=== PATIENT | female | born 1960 | race Caucasian/White ===

== ENCOUNTER 2018-12-18 09:41 | Outpatient (REF) | payer OTHER, SELFPAY ==
--- NOTE | 2018-12-18 08:20 | PAPFT_PTH ---
PATIENT: Chuy Randle LOC: [facility] U#:[id number] AGE/SX: 57/F ROOM: RE12/18/[address]: Etienne Perez : 1960 BED: DIS: 12/18/2018 SPEC #: [id number] RECD: 12/19/18 10:58 STATUS: JS REQ #: [id number] LUIS MANUEL: 12/18/18 08:[address]: Etienne Perez DEPT: [facility] Cytology RECD BY: Richelle Saldaña Tissues: 1 - CX/ENDOCX FOR PAP SMEARS Procedures: PAP THIN PREP/UVM Screening HPV DNA PROBE Comments: [id number]
== END 2018-12-18 10:01 ==
LOC: NCHCN 09:41
PROVIDERS: Visit Provider Family Medicine
DX: Z12.4 Encounter for screening for malignant neoplasm of cervix (principal); Z11.51 Encounter for screening for human papillomavirus (HPV)
CPT/HCPCS: 88142; 87624

== ENCOUNTER 2021-01-18 14:48 | Outpatient (REF) | payer OTHER, SELFPAY ==
[2021-01-18 14:51] LABS: Anion Gap 10.1 mmol/L (3-11); BUN 24 mg/dL (7-18); CO2 26.9 mmol/L (21.0-32.0); CREATININE 0.7 mg/dL (0.55-1.02); Calcium 9.1 mg/dL (8.5-10.1); Calculated LDL 148 mg/dL (<100); Chloride 105 mmol/L (98-107); Cholesterol 235 mg/dL (<200); Glucose 92 mg/dL (74-106); HDL Cholesterol 72 mg/dL (40-60); Potassium 4.3 mmol/L (3.5-5.1); Sodium 142 mmol/L (136-145); Triglyceride 79 mg/dL (<150)
== END 2021-01-18 14:49 | disposition home or self-care (01) ==
LOC: NCHCN 14:48
PROVIDERS: Visit Provider Family Medicine
DX: Z00.00 Encounter for general adult medical examination without abnormal findings (principal); Z13.220 Encounter for screening for lipoid disorders
CPT/HCPCS: 80048; 80061

== ENCOUNTER 2023-06-25 13:30 | Outpatient (REF) | payer BC, SELFPAY ==
[2023-06-25 16:20] LABS: Anion Gap 8.7 mmol/L (3-11); BUN 17 mg/dL (7-18); CO2 27.3 mmol/L (21.0-32.0); CREATININE 0.7 mg/dL (0.55-1.02); Calcium 8.7 mg/dL (8.5-10.1); Calculated LDL 134 mg/dL (<100); Chloride 106 mmol/L (98-107); Cholesterol 209 mg/dL (<200); Estimated GFR 98.34 (mL/min/1.73m2); Glucose 89 mg/dL (74-106); HDL Cholesterol 56 mg/dL (40-60); Potassium 3.6 mmol/L (3.5-5.1); Sodium 142 mmol/L (136-145); Triglyceride 95 mg/dL (<150)
== END 2023-06-25 13:31 | disposition home or self-care (01) ==
LOC: NCHCN 13:30
PROVIDERS: Visit Provider Family Medicine
DX: Z00.00 Encounter for general adult medical examination without abnormal findings (principal); Z13.220 Encounter for screening for lipoid disorders
CPT/HCPCS: 80048; 80061

== ENCOUNTER 2024-07-18 12:51 | Outpatient (REF) | payer BC, SELFPAY ==
--- NOTE | 2024-07-18 10:40 | PAPFT_PTH ---
PATIENT: Chuy Randle LOC: [facility]#:[id number] AGE/SX: 63/F ROOM: RE07/18/[address]: Etienne Perez : 1960 BED: DIS: 07/18/2024 SPEC #: [id number] RECD: 07/21/24 13:09 STATUS: JS REQ #: [id number] LUIS MANUEL: 07/18/24 10:[address]: Etienne Perez DEPT: [facility] Cytology RECD BY: Mulu Pendleton ENTERED: 07/21/24 13:09 SP TYPE: PAPFT OTHR DR: Unknown,Unknown Tissues: 1 - CX/ENDOCX FOR PAP SMEARS Procedures: PAP THIN PREP/UVM Screening HPV DNA PROBE Comments: [id number] (HPV 16 & 18/45)
--- OUTSIDE RECORDS SUMMARY | 2024-07-18 12:53 | XMS_ITS | Encounter Summary ---
Author Organization [facility] Address [address] [place] [address] Care Team Providers Care Demolition Engineer Name Role Phone Unknown, Provider Primary Care Provider Unava ilable Encounter Details Date Type Department Care Team (Late st Contact Info) Description 11/07/2017 Historical Results Only [facility] Radiology Results [address] [place] [address] Kimberley Jimenez MD [address] [facility], [facility] [address] [place] [address] Social History Tobacco Use Types Packs/Day Years Used Date Smoking Tobacco: Never Assessed Comments Unknown Sex and Gender Information Value Date Recorded Sex Assigned at Not on file Legal Sex Female 10:06 EDT Gender Identity Female 04/30/2020 10:09 EDT Sexual Orientation Not on file documented as of this encounter Plan of Treatment Upcoming Encounters Date Type Department Care Team (Late st Contact Info) Description 07/21/2024 18:10 EST Appointment [facility] Mammography [address] [place] [address] documented as of this encounter Procedures Procedure Name Priority Date/Time Associated Diagnosis Comments MA BREAST SCREENING TIMMY BILATERAL 11/07/2017 10:01 EDT documented in this encounter Results * MA BREAST SCREENING TIMMY BILATERAL (11/07/2017 10:01 EDT) Anatomical Region Laterality Modality Breast Bilateral Other 11/07/2017 10:0 1 EDT Narrative 11/07/2017 10:02 EDT ? EXAM: MAMMOGRAM/MAMMO BILATERAL SCREEN W ??EX. D/ (1905) ? CLINICAL INFORMATION: ? Z12.31 SCREENING ? COMPARISON: 2006, 2010, 2012, 2016 ? TECHNIQUE: ??Full field digital whole breast 2D (C-view) and 3D CC and ? MLO views of both breasts were obtained. CAD technology was utilized. ? FINDINGS: ??The fibroglandular patterns of the breasts are normal. ? There has been no change when compared to previous mammograms and ? there is no mammographic evidence of cancer. The breast tissue is of ? scattered density. ? FINAL ASSESSMENT: ??BILATERAL BREAST - Category 1 - Negative. Routine ? mammographic follow-up is recommended. ? These results will be communicated to your patient via a lay letter ? from Radiology. ??If any additional imaging is needed we will contact ? your patient directly. ? REPORT SIGNED IN OTHER VENDOR SYSTEM 11/07/2017 ?Reported By: Nehemias Berumen MD ? CC: ? Transcribed Date/Time: 11/07/2017 (1002) ? Hosiery Bagger: ? Printed Date/Time: 02/13/2019 (2799) ? PAGE 1 ? Signed Report ? Procedure Note Nehemias Berumen MD - 07/02/2019 EXAM: MAMMOGRAM/MAMMO BILATERAL SCREEN W EX. D/ (1905) CLINICAL INFORMATION: Z12.31 SCREENING COMPARISON: 2006, 2010, 2011, 2015 TECHNIQUE: Full field digital whole breast 2D (C-view) and 3D CCand MLO views of both breasts were obtained. CAD technology wasutilized. FINDINGS: The fibroglandular patterns of the breasts are normal. There has been no change when compared to previous mammograms and there is no mammographic evidence of cancer. The breast tissue isof scattered density. FINAL ASSESSMENT: BILATERAL BREAST - Category 1 - Negative.Routine mammographic follow-up is recommended. These results will be communicated to your patient via a lay letter from Radiology. If any additional imaging is needed we willcontact your patient directly. REPORT SIGNED IN OTHER VENDOR SYSTEM 11/07/2017 Reported By: Nehemias Berumen MD CC: Transcribed Date/Time: 11/07/2017 (1002) Hosiery Bagger: Printed Date/Time: 02/13/2019 (0299) PAGE 1 Signed Report Kimberley Jimenez MD IM MAMMOGRAPHY ORDERABLES Final Result documented in this encounter Visit Diagnoses Not on filedocumented in this encounter Care Teams Demolition Engineer Relationship Specialty Start Date End Date Unknown, Provider, PCP - General 06/05/16 04/29/20 documented as of this encounter
--- OUTSIDE RECORDS SUMMARY | 2024-07-18 12:53 | XMS_ITS | Encounter Summary ---
Author Organization [facility] Address [address] [place] [address] Care Team Providers Care President & Founder Name Role Phone Unknown, Provider Primary Care Provider Unava ilable Encounter Details Date Type Department Care Team (Late st Contact Info) Description 02/13/2019 Historical Results Only [facility] Radiology Results [address] [place], [place] [id number] Ade Higginbotham PA-C [address] [facility] [address] [place] [address] Social History Tobacco Use Types Packs/Day Years [...] Contact Info) Description 07/21/2024 18:10 EST Appointment [facility] Mammography [address] [place], [place] [address] documented as of this encounter Procedures Procedure Name Priority Date/Time Associated Diagnosis Comments XR KNEE LEFT 4 OR MORE VIEWS 02/13/2019 15:58 EDT documented in this encounter Results * XR KNEE LEFT 4 OR MORE VIEWS (02/13/2019 15:58 EDT) Anatomical Region Laterality Modality Lower Extremities Left Other 02/13/2019 15:5 8 EDT Narrative 02/13/2019 16:01 EDT ? EXAM: RADIOLOGY EXPRESS CARE/EXP CARE KNE EX. D/ (1525) ? CLINICAL INFORMATION: ? LATERAL PAIN ? INDICATION: LATERAL PAIN. ? COMPARISON: None. ? TECHNIQUE: 4+ views of the left knee were obtained. ? FINDINGS: ? Mild swelling of the prepatellar soft tissues is present. The ? tibiofemoral and patellofemoral joints are unremarkable. No knee ? joint effusion is seen. No fracture or osteonecrosis is identified. ? IMPRESSION: No acute abnormality. ? REPORT SIGNED IN OTHER VENDOR SYSTEM 02/13/2019 ?Reported By: Nehemias Berumen MD ? CC: ? Transcribed Date/Time: 02/13/2019 (1601) ? Inspector Tool: ? Printed Date/Time: 05/14/2019 (1918) ? PAGE 1 ? Signed Report ? Procedure Note Nehemias Berumen MD - 07/01/2019 EXAM: RADIOLOGY EXPRESS CARE/EXP CARE KNE EX. D/ (1525) CLINICAL INFORMATION: LATERAL PAIN INDICATION: LATERAL PAIN. COMPARISON: None. TECHNIQUE: 4+ views of the left knee were obtained. FINDINGS: Mild swelling of the prepatellar soft tissues is present. The tibiofemoral and patellofemoral joints are unremarkable. No knee joint effusion is seen. No fracture or osteonecrosis is identified. IMPRESSION: No acute abnormality. REPORT SIGNED IN OTHER VENDOR SYSTEM 02/13/2019 Reported By: Nehemias Berumen MD CC: Transcribed Date/Time: 02/13/2019 (1838) Inspector Tool: Printed Date/Time: 05/14/2019 (3589) PAGE 1 Signed Report us Ade Higginbotham PA-C [facility] DIAGNOSTIC IMAGING ORDERABLES Final Result documented in this encounter Visit Diagnoses Not on filedocumented in this encounter Care Teams President & Founder Relationship Specialty Start Date End Date Unknown, Provider, PCP - General 06/05/16 04/29/20 documented as of this encounter
--- OUTSIDE RECORDS SUMMARY | 2024-07-18 12:53 | XMS_ITS | Encounter Summary ---
Author Organization [facility] Address [address] [place] [address] Care Team Providers Care Cloth Shrinking Machine Operator Name Role Phone Unknown, Provider Primary Care Provider Unava ilable Encounter Details Date Type Department Care Team (Late st Contact Info) Description 12/18/2018 Results Only [facility] [phone] Brandon Perez MD [address] [place] [address] [address] [place], [place] [address] Social History Tobacco Use Types Packs/Day Years [...] Contact Info) Description 07/21/2024 18:10 EST Appointment [facility] [address] [place], [place] [address] documented as of this encounter Procedures Procedure Name Priority Date/Time Associated Diagnosis Comments PAP TEST- RESULT ONLY Routine 12/18/2018 0:00 EDT documented in this encounter Results * PAP TEST- RESULT ONLY (12/18/2018 0:00 EDT) Pathology Report: CYTOPATHOLOGY REPORT Reports generated via electronic interface contain original data; however they are lacking the format of the original report. Caution should be taken when reading/interpreti ng unformatted reports. Name: ? CHUY FOX ? Accession #: ? [id number] ? : ? 1960 (Age: 57) ??F ?Collect Date: ? 12/18/2018 ? Location: ? [facility] ? Receive Date: ? 12/20/2018 ? Provider: BRANDON PEREZ MD Copy to: ? Final Report SPECIMEN ADEQUACY ? Satisfactory for Evaluation - assessment of transformation zone component not applicable ( e.g. atrophy, vaginal sample, hysterectomy) GENERAL CATEGORIZATION ? Negative for Intraepithelial Lesion or Malignancy ?? Treatment History: Hysterectomy: S/p supracervical Other: Additional clinical information: Z12.4 Z00.00 Specimen/Source: ??Pap Test, Cervix, ThinPrep Imaging System with manual evaluation Document reviewed and electronically signed by: ? ALLYSSA Reyes(ASCP) ? Report ??Date: 12/24/2018 12:12 HPV with Pap Test ? Date Ordered: ? 12/24/2018 ? Status: ?? Signed Out ?Date Complete: ? 12/26/2018 ? By: ??System Interface ? Date Reported: ? 12/26/2018 ? Interpretation RESULT: Negative for HPV. No E6 or E7 mRNA is detected from HPV types 16,18,31,33,35, 39,45,51,52,56,58, 59,66, and 68 by geospatial technician mediated amplification. Comments Document reviewed and electronically signed by: ? System Interface ? Report date: 12/26/2018 By the signature above, the attending physician certifies that he/she has personally conducted a gross and/or microscopic examination of the described specimens and rendered or confirmed the above diagnosis. End of Report [facility] 12/18/2018 12/20/2018 Brandon Perez MD PATHOLOGY ORDERABLES Final Result [facility] [address] [place] [address] documented in this encounter Visit Diagnoses Not on filedocumented in this encounter Care Teams Cloth Shrinking Machine Operator Relationship Specialty Start Date End Date Unknown, Provider, PCP - General 06/05/16 04/29/20 documented as of this encounter
--- OUTSIDE RECORDS SUMMARY | 2024-07-18 12:53 | XMS_ITS | Encounter Summary ---
Author Organization [facility] Address [address] [place] [address] Care Team Providers Care Dealmaker Name Role Phone Unknown, Provider Primary Care Provider Unava ilable Encounter Details Date Type Department Care Team (Late st Contact Info) Description 09/13/2017 Historical Results Only [facility] - Main [place] [phone] Kimberley Jimenez MD [address] [facility], [facility] [address] [place] [address] Social History Tobacco Use Types [...] Contact Info) Description 07/21/2024 18:10 EST Appointment [facility] Mammography [address] [place] [address] documented as of this encounter Procedures Procedure Name Priority Date/Time Associated Diagnosis Comments LIPID PROFILE (INCLUDES CHOLESTEROL, TRIGLYCERIDES, HDL, LDL) Routine 09/13/2017 8:31 EST documented in this encounter Results * (ABNORMAL) LIPID PROFILE (INCLUDES CHOLESTEROL, TRIGLYCERIDES, HDL, LDL) (09/13/2017 8:31 EST) Triglyceride 120 <150 mg/dL 09/13/2017 10:11 EST [facility] Comment: Adult: Normal: ?<150 mg/dl ? Borderline High: 150-199 mg/dl ? High: ?200-499 mg/dl ? Very High: >ba=791 Cholesterol 240(H) <200 mg/dL 09/13/2017 10:11 [facility] Comment: Acceptable: ??<200 Borderline: ??200-239 High: ?> or = 240 Chol/HDL Ratio 3.2 0 - 4.5 09/13/2017 10:11 [facility] Comment: DESIRABLE RATIO IS LESS THAN 4.1 PATIENTS ARE CONSIDERED AT RISK: WOMEN RATIO >5 MEN RATIO >6 FASTING? - [facility] Yes 8 8:32 [facility] HDL 75(H) 40 - 60 mg/dL 09/13/2017 10:11 [facility] Comment: ?? Reference Range Low: ? < 40 ??mg/dL Normal: ??40-60 mg/dL High: ?>= 60 mg/dL LDL CHOLESTEROL - [facility] 141(H) 60 - 100 mg/dL 09/13/2017 10:11 [facility] Non HDL Cholesterol 165 mg/dl 09/13/2017 10:11 [facility] Comment: Desirable: ?Less than 130 Borderline High: ??130-159 High: ? 160-189 Very High: ?Greater than or equal to 190 09/13/2017 8:31 EST 09/13/2017 8:31 EST Narrative [facility] - 09/13/2017 10:11 EST Does PT Have a Latex Allergy? NO us Kimberley Jimenez MD CHEMISTRY & BLOOD GAS ORDERABLES Final Result [facility] documented in this encounter Visit Diagnoses Not on filedocumented in this encounter Care Teams Dealmaker Relationship Specialty Start Date End Date Unknown, Provider, PCP - General 06/05/16 04/29/20 documented as of this encounter
--- OUTSIDE RECORDS SUMMARY | 2024-07-18 12:53 | XMS_ITS | Encounter Summary ---
Author Organization [facility] Address [address] [place] [address] Care Team Providers Care Mushroom Press Operator Name Role Phone Unknown, Provider MD Primary Care Provider Unava ilable Encounter Details Date Type Department Care Team (Latest Contact Info) Description 05/23/2017 23:13 EDT - 05/23/2017 23:59 EDT Hospital Encounter [facility] [address] [place] [address] Unknown, ProviderMD Discharge Disposition: Home or Self Care Social History Tobacco Use Types Packs/Day Years Used Date Smoking Tobacco: Never Assessed Comments Unknown Sex and Gender Information Value Date Recorded Sex Assigned at Not on file Legal Sex Female 10:06 EDT Gender Identity Female 04/30/2020 10:09 EDT Sexual Orientation Not on file documented as of this encounter Discharge Disposition Disposition Code Departure Means Destination Home or Self [place] documented in this encounter Plan of Treatment Upcoming Encounters Date Type Department Care Team (Late st Contact Info) Description 07/21/2024 18:10 EST Appointment [facility] Mammography [address] [place] [address] documented as of this encounter Visit Diagnoses Not on filedocumented in this encounter Care Teams Mushroom Press Operator Relationship Specialty Start Date End Date Unknown, Provider, PCP - General 06/05/16 04/29/20 documented as of this encounter
--- OUTSIDE RECORDS SUMMARY | 2024-07-18 12:53 | XMS_ITS | Encounter Summary ---
Author Organization [facility] Address [address] [place] [address] Care Team Providers Care Hand Rounder Name Role Phone Genny Shipman [facility]- Primary Care Provider [phone] Reason for Visit * Reason Comments Wrist Injury right Encounter Details Date Type Department Care Team (Late st Contact Info) Description 04/27/2024 11:30 EDT [facility] [address] [place] [phone] Dilma Pittman NP [address] [facility] [address] [place] [address] Injury of right wrist, initial encounter (Primary Dx) Social History Tobacco Use Types Packs/Day Years Used Date Smoking Tobacco: Never Assessed Interpersonal Safety Answer Date Record ed Physically Hurt Never 03/29/2020 Verbally Threaten Not on file 03/29/2020 Comments Unknown Sex and Gender Information Value Date Recorded Sex Assigned at Not on file Legal Sex Female 10:06 EDT Gender Identity Female 04/30/2020 10:09 EDT Sexual Orientation Not on file documented as of this encounter Last Filed Vital Signs Vital Sign Reading Time Taken Comments Blood Pressure 127/57 04/27/2024 1129 EDT Pulse 68 04/27/2024 1129 EDT Temperature 36.4 ??C (97.5 ??F) 04/27/2024 1129 EDT Respiratory Rate 16 04/27/2024 1129 EDT Oxygen Saturation 97% 04/27/2024 1129 EDT Inhaled Oxygen Concentration - - Weight - - Height - - Body Mass Index - - documented in this encounter Progress Notes * Kate Serna, RN - 04/27/2024 1130 EDT CC/HPI: Pt here with right wrist injury. Occurred this morning. Pt used ice and swelling continued.Now, hand is swollen. Pt was pulling on a starter cord to a 4-farrar and the cord snapped. 7/10 pain with use. Covid Screening: In the last 72 hours, has the patient had: New or unusual cough, shortness of breath, new nasal congestion, sore throat, fever, chills, body aches, or new loss of taste or smell without a reasonable alternative diagnosis? N In the past 10 days, has the patient had a positive Covid test OR a confirmed close Covid exposure?N * Dilma Pittman NP - 04/27/2024 1130 EDT [facility] Chief Complaint(s): Wrist Injury (right) Assessment & Plan: 1. Injury of right wrist, initial encounter 63 yo female with dorsal right wrist pain since injury pulling on a cord this morning. There is swelling and tenderness just proximal to the radiocarpal joint. No fracture seen on x-ray. Recommended supportive care with RICE. RHIANNA wrap applied. Start range of motion as tolerated this week. Recheck with lack of improvement over the next 7-10 days - XR WRIST RIGHT 3 OR MORE VIEWS An appropriate medical screening examination was performed. The patient was assessed prior to discharge and deemed stable for discharge home. HPI: Chuy is here with right wrist injury. Occurred this morning. She was pulling on a starter cord on 4-farrar and cord snapped and her arm and wrist jerked. It all happened very quickly and she is notexactly sure what happened. She did not fall on it The pain as at the dorsum of her wrist. Some pain at rest. Worse with movement, particularly supination. There is swelling. She has applied some ice. She is right handed. 7/10 of pain with use. No history of osteoporosis or significant injuries to this wrist. Objective: Vitals and nursing notes reviewed Examination: BP 127/57 (BP Cuff Location: Left arm) Pulse 68 Temp 36.4 ??C (97.5 ??F) (Oral) Resp 16 SpO2 97% Physical Exam Constitutional: Appearance: Normal appearance. She is not ill-appearing. Musculoskeletal: Right elbow: Normal. Right wrist: Swelling and tenderness present. No lacerations or snuff box tenderness. Decreased range of motion (able to move wrist in all directions but limited with pain). Right hand: No swelling or tenderness. Decreased range of motion (increases pain in wrist). Normal sensation. Normal capillary refill. Comments: Swelling and tenderness at right dorsal wrist, proximal to the radiocarpal joint Neurological: Mental Status: She is alert. Data reviewed with patient (current and past results): XR WRIST RIGHT 3 OR MORE VIEWS Narrative: PROCEDURE INFORMATION: Exam: XR Right Wrist Exam date and time: 04/27/2024 11:55 AM Age: 63 years old Clinical indication: Unspecified injury of right wrist, hand and finger(s), initial encounter; Pain; Additional info: Dorsal wrist pain and swelling, injury TECHNIQUE: Imaging protocol: Radiologic exam of the right wrist. Views: 3 or more views. COMPARISON: No relevant prior studies available. FINDINGS: Bones/joints: Normal. Soft tissues: Normal. Impression: No acute findings. THIS DOCUMENT HAS BEEN ELECTRONICALLY SIGNED BY CHING NAVARRETE MD FOR ANY QUESTIONS OR CONCERNS REGARDING THIS REPORT PLEASE CALL [facility] AT [phone] This note may be in part documented using voice dictation software. Please forgive any errors or omissions that may result from use of dictation. documented in this encounter Plan of Treatment Upcoming Encounters Date Type Department Care Team (Late st Contact Info) Description 07/21/2024 18:10 EST Appointment [facility] Mammography [address] [place] [id number] documented as of this encounter Procedures Procedure Name Priority Date/Time Associated Diagnosis Comments XR WRIST RIGHT 3 OR MORE VIEWS STAT 04/27/2024 12:03 EDT Injury of right wrist, initial encounter documented in this encounter Results * XR WRIST RIGHT 3 OR MORE VIEWS (04/27/2024 12:03 EDT) Anatomical Region Laterality Modality Upper Extremities Right Computed Radio graphy 04/27/2024 11:5 5 EDT Impressions 04/27/2024 14:14 EDT No acute findings. THIS DOCUMENT HAS BEEN ELECTRONICALLY SIGNED BY CHING NAVARRETE MD FOR ANY QUESTIONS OR CONCERNS REGARDING THIS REPORT PLEASE CALL [facility] AT [phone] Narrative 04/27/2024 14:14 EDT PROCEDURE INFORMATION: Exam: XR Right Wrist Exam date and time: 04/27/2024 11:55 AM Age: 63 years old Clinical indication: Unspecified injury of right wrist, hand and finger(s), initial encounter; Pain; Additional info: Dorsal wrist pain and swelling, injury TECHNIQUE: Imaging protocol: Radiologic exam of the right wrist. Views: 3 or more views. COMPARISON: No relevant prior studies available. FINDINGS: Bones/joints: Normal. Soft tissues: Normal. Procedure Note Ching Navarrete MD - 04/27/2024 PROCEDURE INFORMATION: Exam: XR Right Wrist Exam date and time: 04/27/2024 11:55 AM Age: 63 years old Clinical indication: Unspecified injury of right wrist, hand and finger(s), initial encounter; Pain; Additional info: Dorsal wrist pain and swelling, injury TECHNIQUE: Imaging protocol: Radiologic exam of the right wrist. Views: 3 or more views. COMPARISON: No relevant prior studies available. FINDINGS: Bones/joints: Normal. Soft tissues: Normal. IMPRESSION No acute findings. THIS DOCUMENT HAS BEEN ELECTRONICALLY SIGNED BY CHING NAVARRETE MD FOR ANY QUESTIONS OR CONCERNS REGARDING THIS REPORT PLEASE CALL [facility] [phone] Dilma Pittman NP IMG DIAGNOSTIC IMAGING ORDERABL ES Final Result documented in this encounter Visit Diagnoses Diagnosis Injury of right wrist, initial encounter- Primary documented in this encounter Care Teams Hand Rounder Relationship Specialty Start Date End Date [facility] [address] [facility] [place] [address] PCP - General 04/30/20 07/14/24 documented as of this encounter
--- OUTSIDE RECORDS SUMMARY | 2024-07-18 12:53 | XMS_ITS | Clinical Summary ---
Author Organization [facility] Address [address] [place] [address] Care Team Providers Care Last Sawyer Name Role Phone Dani Perez MD Primary Care Provide r Allergies Active Allergy Reactions Criticality Noted Date Comments Clarithromycin 02/13/2019 Other reaction(s): hives Penicillin 02/13/2019 Other reaction(s): hives Sulfa (Sulfonamide Antibiotics) 02/13/2019 Other reaction(s): hives Medications loratadine-pseud oephedrine (CLARITIN-D 12-HOUR) 5-120 mg per tablet 1 tab(s) orally every 12 hours, as needed Active meloxicam (MOBIC) 7.5 mg tablet Take 1 Tablet by mouth daily. Active Encounters Date Type Department Care Team Description 04/27/2024 11:30 EDT Walk-In [facility] [address] [place] [address] Dilma Pittman NP Injury of right wrist, initial encounter (Primary Dx) from Last 3 Months Social History Tobacco Use Types Packs/Day Years Used Date Smoking Tobacco: Never Assessed Interpersonal Safety Answer Date Record ed Physically Hurt Never 03/29/2020 Verbally Threaten Not on file 03/29/2020 Comments Unknown Sex and Gender Information Value Date Recorded Sex Assigned at Not on file Legal Sex Female 10:06 EDT Gender Identity Female 04/30/2020 10:09 EDT Sexual Orientation Not on file Last Filed Vital Signs Vital Sign Reading Time Taken Comments Blood Pressure 127/57 04/27/2024 1129 EDT Pulse 68 04/27/2024 1129 EDT Temperature 36.4 ??C (97.5 ??F) 04/27/2024 1129 EDT Respiratory Rate 16 04/27/2024 1129 EDT Oxygen Saturation 97% 04/27/2024 1129 EDT Inhaled Oxygen Concentration - - Weight - - Height - - Body Mass Index - - Plan of Treatment Upcoming Encounters Date Type Department Care Team (Late st Contact Info) Description 07/21/2024 18:10 EST Appointment [facility] Mammography [address] [place] [id number] Health Maintenance Due Date Last Done Comments Hepatitis C Screen 1960 COVID-19 Vaccine ( season) 2024 RSV Immunization ( o r 60+ Years) (1 - 1-dose 75+ series) 2036 Procedures Procedure Name Priority Date/Time Associated Diagnosis Comments XR WRIST RIGHT 3 OR MORE VIEWS STAT 04/27/2024 12:03 EDT Injury of right wrist, initial encounter from Last 3 Months Results * XR WRIST RIGHT 3 OR MORE VIEWS (04/27/2024 12:03 EDT) Anatomical Region Laterality Modality Upper Extremities Right Computed Radio graphy 04/27/2024 11:5 5 EDT Impressions 04/27/2024 14:14 EDT No acute findings. THIS DOCUMENT HAS BEEN ELECTRONICALLY SIGNED BY CHING NAVARRETE MD FOR ANY QUESTIONS OR CONCERNS REGARDING THIS REPORT PLEASE CALL [facility] AT [phone] Narrative 04/27/2024 14:14 EDT PROCEDURE INFORMATION: Exam: [...] CONCERNS REGARDING THIS REPORT PLEASE CALL [facility] [phone] us Dilma Pittman NP IMG DIAGNOSTIC IMAGING ORDERABL ES Final Result from Last 3 Months Insurance [facility] Care Teams Last Sawyer Relationship Specialty Start Date End Date Dani Perez MD [address] [place] [address] [address] [place] [address] PCP - General 07/15/24
--- OUTSIDE RECORDS SUMMARY | 2024-07-18 12:53 | XMS_ITS | Encounter Summary ---
Author Organization [facility] Address [address] [place] [address] Care Team Providers Care Public Improvement Inspector Name Role Phone Unknown, Provider Primary Care Provider Unava ilable Encounter Details Date Type Department Care Team (Late st Contact Info) Description 05/24/2017 Historical Results Only [facility] Radiology Results [address] [place] [address] Geovany Stroud MD [address] [place] [address] Social History Tobacco Use Types Packs/Day Years [...] Contact Info) Description 07/21/2024 18:10 EST Appointment [facility] Mammography [address] [place] [address] documented as of this encounter Procedures Procedure Name Priority Date/Time Associated Diagnosis Comments XR CHEST 2 VIEWS 05/24/2017 17:0 8 EDT documented in this encounter Results * XR CHEST 2 VIEWS (05/24/2017 17:08 EDT) Anatomical Region Laterality Modality Other 05/24/2017 17:0 8 EDT Narrative 05/24/2017 17:12 EDT ? EXAM: RADIOLOGY/CHEST (PA ?? LAT) ?EX. D/ (1659) ? CLINICAL INFORMATION: ? RE CHECK PTX ? INDICATION: RE CHECK PTX RECHECK ? TECHNIQUE: ??Chest, PA and lateral views ? COMPARISON: CT chest 05/23/2017. ? FINDINGS: There is a persistent right apical pneumothorax. Accounting ? for differences in positioning in the 2 examinations, the size is ? similar. No left-sided pneumothorax is present. The lungs remain ? clear. The cardiac silhouette and pulmonary vascularity are normal. ? IMPRESSION: ? Persistent right pneumothorax. ? REPORT SIGNED IN OTHER VENDOR SYSTEM 05/24/2017 ?Reported By: Laz Rodgers MD ? CC: ? Transcribed Date/Time: 05/24/2017 (1712) ? Loan Clerk: ? Printed Date/Time: 02/11/2019 (1412) ? PAGE 1 ? Signed Report ? Procedure Note Laz Rodgers E - 07/02/2019 EXAM: RADIOLOGY/CHEST (PA LAT) EX. D/ (6159) CLINICAL INFORMATION: RE CHECK PTX INDICATION: RE CHECK PTX RECHECK TECHNIQUE: Chest, PA and lateral views COMPARISON: CT chest 05/23/2017. FINDINGS: There is a persistent right apical pneumothorax.Accounting for differences in positioning in the 2 examinations, the size is similar. No left-sided pneumothorax is present. The lungs remain clear. The cardiac silhouette and pulmonary vascularity are normal. IMPRESSION: Persistent right pneumothorax. REPORT SIGNED IN OTHER VENDOR SYSTEM 05/24/2017 Reported By: Laz Rodgers MD CC: Transcribed Date/Time: 05/24/2017 (3256) Loan Clerk: Printed Date/Time: 02/11/2019 (7465) PAGE 1 Signed Report us Geovany Stroud MD IMG DIAGNOSTIC IMAGING O RDERABLES Final Result documented in this encounter Visit Diagnoses Not on filedocumented in this encounter Care Teams Public Improvement Inspector Relationship Specialty Start Date End Date Unknown, Provider, PCP - General 06/05/16 04/29/20 documented as of this encounter
--- OUTSIDE RECORDS SUMMARY | 2024-07-18 12:53 | XMS_ITS | Encounter Summary ---
Author Organization [facility] Address [address] [place] [address] Care Team Providers Care Crown Wheel Assembler Name Role Phone Unknown, Provider MD Primary Care Provider Unava ilable Encounter Details Date Type Department Care Team (Latest Contact Info) Description 11/05/2017 10:25 EDT - 11/05/2017 23:59 EDT Hospital Encounter [facility] [address] [place] [address] Unknown, ProviderMD Discharge Disposition: Home or Self [...] Code Departure Means Destination Home or Self Nursing Home documented in this encounter Plan of Treatment Upcoming Encounters Date Type Department Care Team (Late st Contact Info) Description 07/21/2024 18:10 EST Appointment [facility] Mammography [address] [place] [address] documented as of this encounter Visit Diagnoses Not on filedocumented in this encounter Care Teams Crown Wheel Assembler Relationship Specialty Start Date End Date Unknown, Provider, PCP - General 06/05/16 04/29/20 documented as of this encounter
--- OUTSIDE RECORDS SUMMARY | 2024-07-18 12:53 | XMS_ITS | Referral Summary ---
Author Organization [facility] Address [address] [place] [address] Care Team Providers Care Credit Representative Name Role Phone Dani Perez MD Primary Care Provide r Encounters Date Type Department Care Team Description 04/27/2024 11:30 EDT [facility] [address] [place] [address] Dilma Pittman NP Injury of right wrist, initial encounter (Primary Dx) from Last 3 Months Allergies Active Allergy Reactions Criticality Noted Date Comments Clarithromycin 02/13/2019 Other reaction(s): hives Penicillin 02/13/2019 Other reaction(s): hives Sulfa (Sulfonamide Antibiotics) 02/13/2019 Other reaction(s): hives Medications loratadine-pseud oephedrine (CLARITIN-D 12-HOUR) 5-120 mg per tablet 1 tab(s) orally every 12 hours, as needed Active meloxicam (MOBIC) 7.5 mg tablet Take 1 Tablet by mouth daily. Active Social History Tobacco Use Types Packs/Day Years [...] Contact Info) Description 07/21/2024 18:10 EST Appointment [address] [address] Procedures Procedure Name Priority Date/Time Associated Diagnosis [...] REGARDING THIS REPORT PLEASE CALL [facility] AT [phone] Narrative 04/27/2024 14:14 EDT PROCEDURE INFORMATION: Exam: [...] CONCERNS REGARDING THIS REPORT PLEASE CALL [facility] [phone] us Dilma Zain SULLIVAN IMG DIAGNOSTIC IMAGING ORDERABL ES Final Result from Last 3 Months Insurance [facility] Care Teams Credit Representative Relationship Specialty Start Date End Date Dani Perez MD [address] [place] [address] [address] [place] [address] PCP - General 07/15/24
--- OUTSIDE RECORDS SUMMARY | 2024-07-18 12:53 | XMS_ITS | Encounter Summary ---
Author Organization [facility] Address [address] [place] [address] Care Team Providers Care Oxygen Therapy Technician Name Role Phone Unknown, Provider Primary Care Provider Unava ilable Encounter Details Date Type Department Care Team (Late st Contact Info) Description 11/05/[address] [facility] Radiology Results [address] [place] [address] Kimberley Jimenez MD [address] [facility], [facility] [address] [place] [address] Social History Tobacco Use Types [...] Contact Info) Description 07/21/2024 18:[address] [facility] Mammography [address] [place] [address] documented as of this encounter Visit Diagnoses Not on filedocumented in this encounter Care Teams Oxygen Therapy Technician Relationship Specialty Start Date End Date Unknown, Provider, PCP - General 06/05/16 04/29/20 documented as of this encounter
--- OUTSIDE RECORDS SUMMARY | 2024-07-18 12:53 | XMS_ITS | Encounter Summary ---
Author Organization [facility] Address [address] [place] [address] Care Team Providers Care Commercial Collections Driver Name Role Phone Unknown, Provider Primary Care Provider Unava ilable Encounter Details Date Type Department Care Team (Late st Contact Info) Description 05/27/[address] [facility] Radiology Results [address] [place] [address] Kimberley Jimenez MD [address] [facility], [facility] [address] [place] [address] Social History Tobacco Use Types [...] Info) Description 07/21/2024 18:[address] [facility] Mammography [address] [place] [address] documented as of this encounter Procedures Procedure Name Priority Date/Time Associated Diagnosis Comments XR CHEST 2 VIEWS 05/27/2017 17:0 8 EDT documented in this encounter Results * XR CHEST 2 VIEWS (05/27/2017 17:08 EDT) Anatomical Region Laterality Modality Other 05/27/2017 17:0 8 EDT Narrative 05/27/2017 17:09 EDT ? EXAM: RADIOLOGY/CHEST (PA ?? LAT) ?EX. D/ (1633) ? CLINICAL INFORMATION: ? S27.0XXD, TRAUMATIC PNEUMOTHROX, SUBSEQUENT ? ENCOUNTER, EVAL FOR CHANGE OF PNEUMONOTHORAX ? EXAM: ? XR Chest, 2 Views ? EXAM DATE/TIME: ? 05/27/2017 4:22 PM ? CLINICAL HISTORY: ? The patient is 56 years old and is female; Signs and symptoms; ? Other: Pneumo recheck; Additional info: S27.0xxd, traumatic ? pneumothrox, subsequent , encounter, eval for change of ? pneumonothorax Facility exam id and description: Cxr chest (pa ? lat) ? TECHNIQUE: ? Frontal and lateral views of the chest. ? COMPARISON: ? CR - ([id number], CHEST, CHEST PA) 05/24/2017 4:45:33 PM ? FINDINGS: ? Lungs: ??There is mild streaky bibasilar atelectasis. ??The ? lungs are otherwise clear. ? Pleural space: ??A right-sided pneumothorax is again present. ? It is slightly decreased in size, now with approximately 1.4 cm ? pleural separation (previously 1.9 cm). ??No left pneumothorax. ? The costophrenic angles are sharp. ? Heart: ??The cardiomediastinal silhouette is fairly stable in ? appearance. ? Mediastinum: ??See above. ? Bones/joints: ??Degenerative changes again involve the spine ? and shoulders. ? IMPRESSION: ? Slightly decreased size of a right-sided pneumothorax as ? compared with 9/28/17. ? REPORT SIGNED IN OTHER VENDOR SYSTEM 05/27/2017 ?Reported By: Manjeet Arias MD ? CC: ? Transcribed Date/Time: 05/27/2017 (1709) ? Car Shagger: HIS.[facility] ? Printed Date/Time: 02/11/2019 (1412) ? PAGE 1 ? Signed Report ? Procedure Note Manjeet Arias MD - 07/02/2019 EXAM: RADIOLOGY/CHEST (PA LAT) EX. D/ (1633) CLINICAL INFORMATION: S27.0XXD, TRAUMATIC PNEUMOTHROX, SUBSEQUENT ENCOUNTER, EVAL FOR CHANGE OF PNEUMONOTHORAX EXAM: XR Chest, 2 Views EXAM DATE/TIME: 05/27/2017 4:22 PM CLINICAL HISTORY: The patient is 56 years old and is female; Signs and symptoms; Other: Pneumo recheck; Additional info: S27.0xxd, traumatic pneumothrox, subsequent , encounter, eval for change of pneumonothorax Facility exam id and description: Cxr chest (pa lat) TECHNIQUE: Frontal and lateral views of the chest. COMPARISON: CR - ([id number], CHEST, CHEST PA) 05/24/2017 4:45:33 PM FINDINGS: Lungs: There is mild streaky bibasilar atelectasis. The lungs are otherwise clear. Pleural space: A right-sided pneumothorax is again present. It is slightly decreased in size, now with approximately 1.4 cm pleural separation (previously 1.9 cm). No left pneumothorax. The costophrenic angles are sharp. Heart: The cardiomediastinal silhouette is fairly stable in appearance. Mediastinum: See above. Bones/joints: Degenerative changes again involve the spine and shoulders. IMPRESSION: Slightly decreased size of a right-sided pneumothorax as compared with 05/24/17. REPORT SIGNED IN OTHER VENDOR SYSTEM 05/27/2017 Reported By: Manjeet Arias MD CC: Transcribed Date/Time: 05/27/2017 (6498) Car Shagger: Printed Date/Time: 02/11/2019 (8953) PAGE 1 Signed Report Kimberley Jimenez MD [facility] DIAGNOSTIC IMAGING ORDERABLE S Final Result documented in this encounter Visit Diagnoses Not on filedocumented in this encounter Care Teams Commercial Collections Driver Relationship Specialty Start Date End Date Unknown, Provider, PCP - General 06/05/16 04/29/20 documented as of this encounter
--- OUTSIDE RECORDS SUMMARY | 2024-07-18 12:53 | XMS_ITS | Encounter Summary ---
Author Organization [facility] Address [address] [place] [address] Care Team Providers Care Seed Packer Name Role Phone Unknown, Provider MD Primary Care Provider Unava ilable Encounter Details Date Type Department Care Team (Latest Contact Info) Description 02/13/2019 11:11 EDT - 02/13/2019 23:[address] [facility] [address] [place] [address] Unknown, ProviderMD Discharge Disposition: Home or Self [...] Code Departure Means Destination Home or Self [facility] documented in this encounter Plan of Treatment Upcoming Encounters Date Type Department Care Team (Late st Contact Info) Description 07/21/2024 18:10 EST Appointment [facility] Mammography [address] [place] [address] documented as of this encounter Visit Diagnoses Not on filedocumented in this encounter Care Teams Seed Packer Relationship Specialty Start Date End Date Unknown, Provider, PCP - General 06/05/16 04/29/20 documented as of this encounter
--- OUTSIDE RECORDS SUMMARY | 2024-07-18 12:53 | XMS_ITS | Encounter Summary ---
Author Organization [facility] Address [address] [place] [address] Care Team Providers Care Taker Down Name Role Phone Genny Shipman [facility]- Primary Care Provider [phone] [phone] Reason for Visit * Reason Comments Foot Injury Encounter Details Date Type Department Care Team (Late st Contact Info) Description 04/30/2020 10:30 EDT Walk-In [facility] [address] [place] [id number] Bill Dutton, NURSING EXECUTIVE [address] [facility] [address] [place], [place] [id number] Foot injury, left, initial encounter (Primary Dx) Social History Tobacco [...] Sign Reading Time Taken Comments Blood Pressure 119/65 04/30/2020 1025 EDT Pulse 74 04/30/2020 1025 EDT Temperature 36.3 ??C (97.4 ??F) 04/30/2020 1025 EDT Respiratory Rate 16 04/30/2020 1025 EDT Oxygen Saturation - - Inhaled Oxygen Concentration - - Weight - - Height - - Body Mass Index - - documented in this encounter Patient Instructions * Patient Instructions* Bill Dutton, SECTION REPAIRER - 04/30/2020 10:30 EDT Images from the original note were not included. No fracture seen of the left foot today. Osteoarthritis noted. Ice and elevate. Juancarlos wrap for comfort.You can tighten or loss as needed for comfort or take it off if you do not feel it is helping. Supportive shoes. You can use your crutches you have at home for the next couple of days to minimize wtbearing for comfort. Tylenol 650 mg every 4 hr not to exceed 3gm in a day and okay to continue withprescribed meloxicam. [facility] Patient Instructions Osteoarthritis: Care Instructions Your Care Instructions Arthritis is a common health problem in which the joints are inflamed. There are several kinds of arthritis. Osteoarthritis is caused by a breakdown of cartilage, the hard, thick tissue that cushionsthe joints. It causes pain, stiffness, and swelling, often in the spine, fingers, hips, and knees. O steoarthritis can happen at any age, but it is most common in older people. Osteoarthritis never goes away completely, but it can be controlled. Medicine and home treatment can reduce the pain and prevent the arthritis from getting worse. Follow-up care is a duran part of your treatment and safety. Be sure to make and go to all appointments, and call your doctor if you are having problems. It's also a good idea to know your test resultsand keep a list of the medicines you take. How can you care for yourself at home? ?? Take a warm shower or bath in the morning to relieve stiffness. Avoid sitting still afterwards. ?? If the joint is not swollen, use moist heat, like a warm, damp towel, for 20 to 30 minutes, 2 or3 times a day. Do not use heat on a swollen joint. ?? If the joint is swollen, use ice or cold packs for 10 to 20 minutes, once an hour. Cold will help relieve pain and reduce inflammation. Put a thin cloth between the ice and your skin. ?? To prevent stiffness, gently move the joint through its full range of motion several times a day. ?? If the joint hurts, avoid activities that put a strain on it for a few days. Take rest breaks throughout the day. ?? Get regular exercise. Walking, swimming, yoga, biking, gabino chi, and water aerobics are good exercises that are gentle on the joints. ?? Reach and stay at a healthy weight. If you need to lose or maintain weight, regular exercise willie healthy diet will help. Extra weight can strain the joints, especially the knees and hips, and make the pain worse. Losing even a few pounds may help. ?? Take pain medicines exactly as directed. ? If the doctor gave you a prescription medicine for pain, take it as prescribed. ? If you are not taking a prescription pain medicine, ask your doctor if you can take an eslg-ehk-htaoloq medicine. When should you call for help? Call your doctor now or seek immediate medical care if: ? The pain is so bad that you cannot use the joint. ? You have sudden back pain with weakness in your legs or loss of bowel or bladder control. ? Your stools are black and tarlike or have streaks of blood. ? You have severe pain and swelling in more than one joint. Watch closely for changes in your health, and be sure to contact your doctor if: ? You have side effects from the medicines, like belly pain, ongoing heartburn, or nausea. ? Joint pain continues for more than 6 weeks, and home treatment is not helping. Where can you learn more? Go to https://[email or web address]/CellVir or log into your [employer] account at [email or web address] Enter U459 in the search box to learn more about Osteoarthritis: Care Instructions. Current as of: August 04, 2019?Content Version: 12.6 ?? [employer]. Care instructions adapted under license by [facility]. If you have questions about a medical condition or this instruction, always ask your healthcare professional. [employer] disclaims any warranty or liability for your use of this information. documented in this encounter Progress Notes * Nataly Zimmerman - 04/30/2020 1030 EDT CC: pt reports injury to left foot happened yesterday, pt tripped while walking on a trail Has the patient contacted their PCP regarding this chief complaint?no Covid Screening: Fever, chills, body aches: no New or unusual cough, SOB: no Decrease/change in sense of taste or smell: no Sore throat or headache:no Have you been in close contact (less than 6 ft for more than 15 minutes) with suspected or confirmed person with Covid-19 in past 14 days: no Travel outside of [place] in last 14 days? no If yes, was it to a low risk location? Reference [facility] Travel Map to see if the location falls within a low risk area (<400 casesper million): https://accd.[place].gov/covid-19/restart/odvfl-lcmrx-dsyyak Nataly Zimmerman 04/30/20 10:19 * Bill Dutton APRN - 04/30/2020 1030 EDT [facility] Chief Complaint(s): Foot Injury HPI: Chuy Randle is here with complaints of left foot pain and swelling after tripping yesterday. She reports she was feeding the pigs when her right foot caught on a branch and she thinks she hyper flexed her left foot. 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 Social History Tobacco Use Smoking Status Not on file I have reviewed current problem list, current medications and allergies. ROS: ROS See HPI for details Objective: Examination: Nursing Notes and Vital Signs reviewed. Vitals: BP 119/65 Pulse 74 Temp 36.3 ??C (97.4 ??F) Resp 16 Physical Exam Constitutional: General: She is not in acute distress. Appearance: Normal appearance. She is not ill-appearing. Neck: Musculoskeletal: Normal range of motion. Musculoskeletal: Normal range of motion. General: Swelling (lateral malleolus, dorsal foot, and great toe) and tenderness (tenderness with wt bearing ) present. No deformity. Comments: Non-tender on palpation during assessment of foot, arch(dorsal and plantar), ankle, and toes Skin: General: Skin is warm and dry. Capillary Refill: Capillary refill takes less than 2 seconds. Findings: Erythema (left great toe and dorsal arch) present. No bruising or lesion. Neurological: Mental Status: She is alert and oriented to person, place, and time. XR FOOT LEFT 3 OR MORE VIEWS EXAM: RADIOLOGY EXPRESS CARE/EXP CARE CHIKIS EX. D/ (8799) CLINICAL INFORMATION: S99.922A, FOOT INJURY, LEFT, TRIPPED AND HYPER FLEXED LEFT FOOT YESTERDAY, HAS BEEN WT BEARING WITH SWELLING AND DISCOMFORT Indication: S99.922A, FOOT INJURY, LEFT, TRIPPED AND HYPER FLEXED LEFT FOOT, YESTERDAY, HAS BEEN WT BEARING WITH SWELLING AND DISCOMFORT LEFT FOOT INJURY, , HYUNDAI SILVER Technique: 3 view imaging of the left foot. Comparison: None. Findings: There is a hallux valgus alignment. Early polyarticular interphalangeal joint space narrowing is seen. Also there is joint space narrowing at the great toe MTP joint. No linear acute fractures seen. IMPRESSION: 1. No acute osseous injury detected. 2. 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 REPORT SIGNED IN OTHER VENDOR SYSTEM 04/30/2020 Reported By: Douglas Collins MD CC: Transcribed Date/Time: 04/30/2020 (1121) Armature Winder: Printed Date/Time: 04/30/2020 (1121) PAGE 1 Signed Report Assessment & Plan: Chuy was seen today for foot injury. Diagnoses and all orders for this visit: Foot injury, left, initial encounter - XR FOOT LEFT 3 OR MORE VIEWS Other orders - XR FOOT LEFT 3 OR MORE VIEWS This is a 59 y.o. yr old female Patient is generally well appearing, afebrile, non toxic, well hydrated, stable on exam. I printed material and reviewed home management and follow up in detail with patient, see patient instructions below. All questions are answered. Patient is advised to follow up for urgent reassessment in the emergency department for any new/worsening signs and symptoms, otherwise, follow up with PCP for symptoms that persist past current course of treatment or expected resolution as discussed. Patient verbalizes understanding and agreement with this plan of care. documented in this encounter Plan of Treatment Upcoming Encounters Date Type Department Care Team (Late st Contact Info) Description 07/21/2024 18:10 [place] [address] Scheduled Orders Name Type Priority Associated Diagnoses Orde r Schedule XR FOOT LEFT 3 OR MORE VIEWS Imaging Routine Foot injury, left, initial encounter Ordered: 04/30/2020 documented as of this encounter Procedures Procedure Name Priority Date/Time Associated Diagnosis Comments XR FOOT LEFT 3 OR MORE VIEWS 04/30/2020 11:21 EDT documented in this encounter Results * XR FOOT LEFT 3 OR MORE VIEWS (04/30/2020 11:21 EDT) Anatomical Region Laterality Modality Lower Extremities Left Computed Radio graphy 04/30/2020 11:1 8 EDT Narrative 04/30/2020 11:21 EDT ? EXAM: RADIOLOGY EXPRESS CARE/EXP CARE CHIKIS EX. D/ (1049) ? CLINICAL INFORMATION: ? S99.922A, FOOT INJURY, LEFT, TRIPPED AND HYPER FLEXED LEFT FOOT ? YESTERDAY, HAS BEEN WT BEARING WITH SWELLING AND DISCOMFORT ? Indication: S99.922A, FOOT INJURY, LEFT, TRIPPED AND HYPER FLEXED ? LEFT FOOT, YESTERDAY, HAS BEEN WT BEARING WITH SWELLING AND ? DISCOMFORT LEFT FOOT INJURY, , HYUNDAI SILVER ? Technique: 3 view imaging of the left foot. ? Comparison: None. ? Findings: There is a hallux valgus alignment. Early polyarticular ? interphalangeal joint space narrowing is seen. Also there is joint ? space narrowing at the great toe MTP joint. No linear acute fractures ? seen. ? IMPRESSION: ? 1. No acute osseous injury detected. ? 2. 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 ? REPORT SIGNED IN OTHER VENDOR SYSTEM 04/30/2020 ?Reported By: Douglas Collins MD ? CC: ? Transcribed Date/Time: 04/30/2020 (1121) ? Armature Winder: ? Printed Date/Time: 04/30/2020 (1121) ? PAGE 1 ? Signed Report ? Procedure Note Douglas Collins MD - 04/30/2020 EXAM: RADIOLOGY EXPRESS CARE/EXP CARE CHIKIS EX. D/ (1049) CLINICAL INFORMATION: S99.922A, FOOT INJURY, LEFT, TRIPPED AND HYPER FLEXED LEFT FOOT YESTERDAY, HAS BEEN WT BEARING WITH SWELLING AND DISCOMFORT Indication: S99.922A, FOOT INJURY, LEFT, TRIPPED AND HYPER FLEXED LEFT FOOT, YESTERDAY, HAS BEEN WT BEARING WITH SWELLING AND DISCOMFORT LEFT FOOT INJURY, , HYUNDAI SILVER Technique: 3 view imaging of the left foot. Comparison: None. Findings: There is a hallux valgus alignment. Early polyarticular interphalangeal joint space narrowing is seen. Also there is joint space narrowing at the great toe MTP joint. No linear acutefractures seen. IMPRESSION: 1. No acute osseous injury detected. 2. 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 REPORT SIGNED IN OTHER VENDOR SYSTEM 04/30/2020 Reported By: Douglas Collins MD CC: Transcribed Date/Time: 04/30/2020 (1121) Armature Winder: Printed Date/Time: 04/30/2020 (1121) PAGE 1 Signed Report Bill Dutton NP IMG DIAGNOSTIC IMAGING ORDER MARLENI Final Result documented in this encounter Visit Diagnoses Diagnosis Foot injury, left, initial encounter- Primary documented in this encounter Historical Medications * This list may reflect changes made after this encounter. meloxicam (MOBIC) 7.5 mg tablet Take 1 Tablet by mouth daily. loratadine-pseudo ephedrine (CLARITIN-D 12-HOUR) 5-120 mg per tablet 1 tab(s) orally every 12 hours, as needed added in this encounter Care Teams Taker Down Relationship Specialty Start Date End Date [facility] [address] [place] [address] PCP - General 04/30/20 07/14/24 documented as of this encounter
--- OUTSIDE RECORDS SUMMARY | 2024-07-18 12:54 | XMS_ITS | Encounter Summary ---
Author Organization [facility] Address [address] [id number] Care Team Providers Care Cell Lead Name Role Phone Dani Perez MD Primary Care Provider [phone]- [phone] Reason for Referral * Consultation (Routine) - Authorized Specialty Diagnoses / Procedures Referred By Sae cates Referred To Contact Dermatology Diagnoses Skin lesion ?[facility] Dani Perez MD [address] [place] [address] [facility] [address] [place] [address] Referral ID Status Reason Start Date Expiration Date Visits Requested Visits Authorized [id number] Authorized Consult, Test & Treat PCP Updated and/or Approved 05/06/2024 11/03/2024 6 6 Encounter Details Date Type Department Care Team (Late st Contact Info) Description 06/17/2024 Transcribe Orders eDH Incoming Referrals [phone] Dani Perez MD [address] [place] [address] Skin lesion Social History Tobacco Use Types Packs/Day Years Used Date Smoking Tobacco: Never Assessed Sex and Gender Information Value Date Recorded Sex Assigned at Not on file Gender Identity Not on file Sexual Orientation Not on file documented as of this encounter Plan of Treatment Upcoming Encounters Date Type Department Care Team (Late st Contact Info) Description 09/02/2024 1:00 PM EST Office Visit Dermatology at [facility] [address] [place] [address] Letha Elliott MD [facility] [address] [facility]ARYAM [place] [address] Scheduled Referrals Name Type Priority Associated Diagnoses Order Schedule Referral to Dermatology Outpatient Referral Routine Skin lesion Ordered: 06/17/2024 documented as of this encounter Visit Diagnoses Diagnosis Skin lesion Unspecified disorder of skin and subcutaneous tissue documented in this encounter Care Teams Cell Lead Relationship Specialty Start Date End Date Dani Perez MD [address] [address] PCP - General Family Medicine 06/17/24 documented as of this encounter
--- OUTSIDE RECORDS SUMMARY | 2024-07-18 12:54 | XMS_ITS | Encounter Summary ---
Author Organization [facility] Address [address] [place] [address] Care Team Providers Care Sports Recruiter Name Role Phone Unknown, Provider Primary Care Provider Unava ilable Encounter Details Date Type Department Care Team (Late st Contact Info) Description 05/23/2017 Historical Results Only [facility] Radiology Results [address] [place] [address] La Alejo, TUBE TEST TECHNICIAN ENP [address] [place] [address] Social History Tobacco Use Types [...] EST Appointment [facility] Mammography [address] [place] [address] documented as of this encounter Procedures Procedure Name Priority Date/Time Associated Diagnosis Comments CT CHEST W CONTRAST 05/23/2017 2 2:16 EDT XR SHOULDER RIGHT 2 OR MORE VIEWS 05/23/2017 20:42 EDT XR CLAVICLE RIGHT 05/23/2017 20: 41 EDT COMPLETE BLOOD COUNT WITH DIFFERENTIAL (AUTO) Routine 05/23/2017 20:20 EDT COMPREHENSIVE METABOLIC PANEL (CMP) Routine 05/23/2017 20:20 EDT documented in this encounter Results * CT CHEST W CONTRAST (05/23/2017 22:16 EDT) Anatomical Region Laterality Modality Chest Other 05/23/2017 22:1 6 EDT Narrative 05/23/2017 22:16 EDT ? EXAM: CAT SCAN/CHEST WITH CONTRAST ?EX. D/ (2123) ? CLINICAL INFORMATION: ? RT SCAPULA FX ? EXAM: ? CT Chest With Intravenous Contrast ? CLINICAL HISTORY: ? 56 years old, female; Signs and symptoms; Other: Unknown; ? Patient HX: unable to move right arm out of scan field. ; ? Additional info: Rt scapula FX, rt clavicle FX - fall from horse ? TECHNIQUE: ? Axial computed tomography images of the chest with intravenous ? contrast. ??All CT scans at this facility use one or more dose ? reduction techniques, viz.: automated exposure control; ma/kV ? adjustment per patient size (including targeted exams where dose ? is matched to indication; i.e. head); or iterative ? reconstruction technique. ? CONTRAST: ? 75 mL of OMNI 350 administered intravenously. ? COMPARISON: ? CR - CLAVICLE-RIGHT 05/23/2017 8:01:06 PM ? FINDINGS: ? Lungs: ??Unremarkable. ??No mass. ??No consolidation. ? Pleural space: ??There is a pneumothorax layering anteriorly in ? the right lung, occupying an estimated 10-20% of the right upper ? lobe volume. The lower lobe appears intact. ??No significant ? effusion. ? Heart: ??Unremarkable. ??No cardiomegaly. ??No significant ? pericardial effusion. ? Bones/joints: ??There is a fracture of the mid right clavicle. ? There is significant foreshortening. ??There are right fourth and ? fifth rib abnormalities directly posteriorly and proximally, ? with small air collections along the path of the ribs and ? cortical irregularity consistent with rib fracture. Findings are ? consistent with acute rib fractures. In addition, there are ? small pleural collections likely reflecting a small area of ? pleural-based hematoma in the post traumatic setting. ??There is ? irregularity of the right third, fourth, fifth and sixth ribs ? bucky-laterally. No acute fracture line is seen. There are ? small areas of sclerosis suggesting old, healed fractures. ??No ? dislocation. ? Soft tissues: There is dense calcification along the ? superolateral margin of the right humeral head, a clear foot and ? calcific bursitis or calcific tendinitis. ? IMPRESSION: ? 1. ??There is a pneumothorax layering anteriorly in the right ? lung, occupying an estimated 10-20% of the right upper lobe ? volume. The lower lobe appears intact. ? 2. ??There is a fracture of the mid right clavicle. There is ? significant foreshortening. ? 3. ??There are right fourth and fifth rib abnormalities directly ? PAGE 1 ? Signed Report ? (CONTINUED) ? posteriorly and proximally, with small air collections along the ? path of the ribs and cortical irregularity consistent with rib ? fracture. Findings are consistent with acute rib fractures. In ? addition, there are small pleural collections likely reflecting ? a small area of pleural-based hematoma in the post traumatic ? setting. ? 4. ??There is irregularity of the right third, fourth, fifth and ? sixth ribs bucky-laterally. No acute fracture line is seen. ? There are small areas of sclerosis suggesting old, healed ? fractures. ? THIS REPORT CONTAINS FINDINGS THAT MAY BE CRITICAL TO PATIENT ? CARE. The findings were verbally communicated via telephone ? conference with LA ALEJO at 10:13 PM EDT on 05/23/2017. The ? findings were acknowledged and understood. ? Vasculature: ??Unremarkable. ??No thoracic aortic aneurysm. ? Lymph nodes: ??Unremarkable. ??No enlarged lymph nodes. ? REPORT SIGNED IN OTHER VENDOR SYSTEM 05/23/2017 ?Reported By: jose Lyons MD ? CC: ? Transcribed Date/Time: 05/23/2017 (9106) ? Kiln Feeder: ? Printed Date/Time: 02/11/2019 (1412) ? PAGE 2 ? Signed Report ? Procedure Note Jose Lyons MD - 07/02/2019 EXAM: CAT SCAN/CHEST WITH CONTRAST EX. D/ (2123) CLINICAL INFORMATION: RT SCAPULA FX EXAM: CT Chest With Intravenous Contrast CLINICAL HISTORY: 56 years old, female; Signs and symptoms; Other: Unknown; Patient HX: unable to move right arm out of scan field. ; Additional info: Rt scapula FX, rt clavicle FX - fall from horse TECHNIQUE: Axial computed tomography images of the chest with intravenous contrast. All CT scans at this facility use one or more dose reduction techniques, viz.: automated exposure control; ma/kV adjustment per patient size (including targeted exams where dose is matched to indication; i.e. head); or iterative reconstruction technique. CONTRAST: 75 mL of OMNI 350 administered intravenously. COMPARISON: CR - CLAVICLE-RIGHT 05/23/2017 8:01:06 PM FINDINGS: Lungs: Unremarkable. No mass. No consolidation. Pleural space: There is a pneumothorax layering anteriorly in the right lung, occupying an estimated 10-20% of the right upper lobe volume. The lower lobe appears intact. No significant effusion. Heart: Unremarkable. No cardiomegaly. No significant pericardial effusion. Bones/joints: There is a fracture of the mid right clavicle. There is significant foreshortening. There are right fourth and fifth rib abnormalities directly posteriorly and proximally, with small air collections along the path of the ribs and cortical irregularity consistent with rib fracture. Findings are consistent with acute rib fractures. In addition, there are small pleural collections likely reflecting a small area of pleural-based hematoma in the post traumatic setting. There is irregularity of the right third, fourth, fifth and sixth ribs bucky-laterally. No acute fracture line is seen. There are small areas of sclerosis suggesting old, healed fractures. No dislocation. Soft tissues: There is dense calcification along the superolateral margin of the right humeral head, a clear foot and calcific bursitis or calcific tendinitis. IMPRESSION: 1. There is a pneumothorax layering anteriorly in the right lung, occupying an estimated 10-20% of the right upper lobe volume. The lower lobe appears intact. 2. There is a fracture of the mid right clavicle. There is significant foreshortening. 3. There are right fourth and fifth rib abnormalities directly PAGE 1 Signed Report (CONTINUED) posteriorly and proximally, with small air collections along the path of the ribs and cortical irregularity consistent with rib fracture. Findings are consistent with acute rib fractures. In addition, there are small pleural collections likely reflecting a small area of pleural-based hematoma in the post traumatic setting. 4. There is irregularity of the right third, fourth, fifth and sixth ribs bucky-laterally. No acute fracture line is seen. There are small areas of sclerosis suggesting old, healed fractures. THIS REPORT CONTAINS FINDINGS THAT MAY BE CRITICAL TO PATIENT CARE. The findings were verbally communicated via telephone conference with LA ALEJO at 10:13 PM EDT on 05/23/2017. The findings were acknowledged and understood. Vasculature: Unremarkable. No thoracic aortic aneurysm. Lymph nodes: Unremarkable. No enlarged lymph nodes. REPORT SIGNED IN OTHER VENDOR SYSTEM 05/23/2017 Reported By: jose Lyons MD CC: Transcribed Date/Time: 05/23/2017 (9617) Kiln Feeder: Printed Date/Time: 02/11/2019 (2055) PAGE 2 Signed Report us La Alejo TUBE TEST TECHNICIAN ENP IMG CT ORDERABLES Final Re sult * XR SHOULDER RIGHT 2 OR MORE VIEWS (05/23/2017 20:42 EDT) Anatomical Region Laterality Modality Right Other 05/23/2017 20:4 2 EDT Narrative 05/23/2017 20:42 EDT ? EXAM: RADIOLOGY/SHOULDER RT 2+VIEWS ? EX. D/ (2009) ? CLINICAL INFORMATION: ? PAIN S/P FALL OFF HORSE ? EXAM: ? XR Right Shoulder Complete, 2 or More Views ? CLINICAL HISTORY: ? 56 years old, female; Injury or trauma; Fall; Initial ? encounter; Fracture, traumatic injury; Closed fracture; Scapula; ? Right; Additional info: Pain S/P fall off horse ? TECHNIQUE: ? Two or more views of the right shoulder. ? COMPARISON: ? No relevant prior studies available. ? FINDINGS: ? Bones/joints: ??A clavicular fracture as discussed on a ? separate clavicular report. ??No dislocation. ? Soft tissues: ??Unremarkable. ? Other findings: ??There is dense calcification along the ? superolateral margin of right humeral head. ? IMPRESSION: ? 1. ??There is dense calcification along the superolateral margin ? of right humeral head. Findings suggest severe calcific ? tendinitis or bursitis. ? 2. ??A clavicular fracture as discussed on a separate clavicular ? report. ? REPORT SIGNED IN OTHER VENDOR SYSTEM 05/23/2017 ?Reported By: jose Lyons MD ? CC: ? Transcribed Date/Time: 05/23/2017 (2041) ? Kiln Feeder: ? Printed Date/Time: 02/11/2019 (2) ? PAGE 1 ? Signed Report ? Procedure Note Jose Lyons MD - 07/02/2019 EXAM: RADIOLOGY/SHOULDER RT 2+VIEWS EX. D/ (2009) CLINICAL INFORMATION: PAIN S/P FALL OFF HORSE EXAM: XR Right Shoulder Complete, 2 or More Views CLINICAL HISTORY: 56 years old, female; Injury or trauma; Fall; Initial encounter; Fracture, traumatic injury; Closed fracture; Scapula; Right; Additional info: Pain S/P fall off horse TECHNIQUE: Two or more views of the right shoulder. COMPARISON: No relevant prior studies available. FINDINGS: Bones/joints: A clavicular fracture as discussed on a separate clavicular report. No dislocation. Soft tissues: Unremarkable. Other findings: There is dense calcification along the superolateral margin of right humeral head. IMPRESSION: 1. There is dense calcification along the superolateral margin of right humeral head. Findings suggest severe calcific tendinitis or bursitis. 2. A clavicular fracture as discussed on a separate clavicular report. REPORT SIGNED IN OTHER VENDOR SYSTEM 05/23/2017 Reported By: jose Lyons MD CC: Transcribed Date/Time: 05/23/2017 (2041) Kiln Feeder: Printed Date/Time: 02/11/2019 (1648) PAGE 1 Signed Report La Robert Alejo TUBE TEST TECHNICIAN ENP IMG DIAGNOSTIC IMAGING ORD ERABLES Final Result * XR CLAVICLE RIGHT (05/23/2017 20:41 EDT) Anatomical Region Laterality Modality Right Other 05/23/2017 20:4 1 EDT Narrative 05/23/2017 20:41 EDT ? EXAM: RADIOLOGY/CLAVICLE-RIGHT ?EX. D/ (2010) ? CLINICAL INFORMATION: ? PAIN S/P FALL OFF HORSE ? EXAM: ? XR Right Clavicle Complete, 2 or More Views ? CLINICAL HISTORY: ? 56 years old, female; Injury or trauma; Fall; Initial ? encounter; Fracture, traumatic injury; Closed fracture; ? Clavicle; Right; Additional info: Pain S/P fall off horse ? TECHNIQUE: ? Frontal and lordotic views of the right clavicle. ? COMPARISON: ? No relevant prior studies available. ? FINDINGS: ? Bones/joints: ??There is a fracture of the midclavicle, with ? significant, 3 cm foreshortening. ??No dislocation. ? Soft tissues: ??There is dense calcification of the soft ? tissues adjacent to the superolateral humeral head. ? IMPRESSION: ? 1. ??There is a fracture of the midclavicle, with significant, 3 ? cm foreshortening. ? 2. ??There is dense calcification of the soft tissues adjacent to ? the superolateral humeral head. This may reflect significant ? bursitis or calcific tendinitis. ? REPORT SIGNED IN OTHER VENDOR SYSTEM 05/23/2017 ?Reported By: jose Lyons MD ? CC: ? Transcribed Date/Time: 05/23/2017 (2040) ? Kiln Feeder: [email or web address] ? Printed Date/Time: 02/11/2019 (6572) ? PAGE 1 ? Signed Report ? Procedure Note Jose Lyons MD - 07/02/2019 EXAM: RADIOLOGY/CLAVICLE-RIGHT EX. D/ (2010) CLINICAL INFORMATION: PAIN S/P FALL OFF HORSE EXAM: XR Right Clavicle Complete, 2 or More Views CLINICAL HISTORY: 56 years old, female; Injury or trauma; Fall; Initial encounter; Fracture, traumatic injury; Closed fracture; Clavicle; Right; Additional info: Pain S/P fall off horse TECHNIQUE: Frontal and lordotic views of the right clavicle. COMPARISON: No relevant prior studies available. FINDINGS: Bones/joints: There is a fracture of the midclavicle, with significant, 3 cm foreshortening. No dislocation. Soft tissues: There is dense calcification of the soft tissues adjacent to the superolateral humeral head. IMPRESSION: 1. There is a fracture of the midclavicle, with significant, 3 cm foreshortening. 2. There is dense calcification of the soft tissues adjacent to the superolateral humeral head. This may reflect significant bursitis or calcific tendinitis. REPORT SIGNED IN OTHER VENDOR SYSTEM 05/23/2017 Reported By: jose Lyons MD CC: Transcribed Date/Time: 05/23/2017 (2040) Kiln Feeder: Printed Date/Time: 02/11/2019 (820) PAGE 1 Signed Report us La R Varnell TUBE TEST TECHNICIAN ENP IMG DIAGNOSTIC IMAGING ORD ERABLES Final Result * (ABNORMAL) COMPREHENSIVE METABOLIC PANEL (CMP) (05/23/2017 20:20 EDT) Albumin % 4.0 3.4 - 5.0 g/dL 05/23/2017 20:51 [facility] ALKALINE PHOSPHATASE - [facility] 68 41 - 126 U/L 05/23/2017 20:51 [facility] BILIRUBIN TOTAL 0.3 0.0 - 1.0 mg/dL 05/23/2017 20:51 [facility] BUN - [facility] 18 7 - 18 mg/dL 05/23/2017 20:51 [facility] CALCIUM - [facility] 9.0 8.5 - 10.1 mg/dL 05/23/2017 20:51 [facility] Chloride 105 98 - 107 mEq/L 05/23/2017 20:51 [facility] CO2 Total 26 21 - 32 mEq/L 05/23/2017 20:51 [facility] CREATININE 0.87 0.5 - 1.3 mg/dL 05/23/2017 20:51 [facility] eGFR >60 05/23/2017 20:51 [facility] Comment: Chronic renal impairment is defined as GFR <60 Multiply result by 1.210 for patients. eGFR calculated using the IDMS-traceable MDRD Study Equation. ??(effective 06/29/2014) Anion Gap 8 5 - 15 05/23/2017 20:51 [facility] GLUCOSE - [facility] 127(H) 70 - 100 mg/dL 05/23/2017 20:51 [facility] Potassium 3.6 3.5 - 5.0 mEq/L 05/23/2017 20:51 [facility] Sodium 139 135 - 145 mEq/L 05/23/2017 20:51 [facility] TOTAL PROTEIN - [facility] 7.8 6.4 - 8.2 gm/dl 05/23/2017 20:51 [facility] SGOT/AST - [facility] 24 10 - 37 U/L 05/23/2017 20:51 EDT [facility] SGPT/ALT - [facility] 32 12 - 78 U/L 05/23/2017 20:51 EDT [facility] 05/23/2017 20:2 0 EDT 05/23/2017 20:28 EDT Narrative [facility] - 05/23/2017 20:51 EDT Does PT Have a Latex Allergy? NO us La Alejo TUBE TEST TECHNICIAN ENP CHEMISTRY & BLOOD GAS ORDE GIGI Final Result [facility] * (ABNORMAL) COMPLETE BLOOD COUNT WITH DIFFERENTIAL (AUTO) (05/23/2017 20:20 EDT) ABSOLUTE NEUTROPHIL COUN - [facility] 8.36(H) 1.7 - 7.0 10e3/ul 05/23/2017 20:38 EDT [facility] BASO # - [facility] 0.02 0.0 - 0.3 10e3/uL 05/23/2017 20:38 [facility] BASO % - [facility] 0 0 - 2 % 05/23/2017 20:38 [facility] EOS # - [facility] 0.07 0.05 - 0.5 10e3/uL 05/23/2017 20:38 [facility] EOS % - [facility] 1 0 - 5 % 05/23/2017 20:38 T [facility] GRAN % - [facility] 77 40 - 80 % 05/23/2017 20:38 [facility] HEMATOCRIT - [facility] 41.1 34.0 - 47.0 % 05/23/2017 20:38 [facility] HEMOGLOBIN - [facility] 13.5 11.2 - 15.7 g/dl 05/23/2017 20:38 [facility] LYMPH # - [facility] 1.61 0.9 - 2.9 10e3/uL 05/23/2017 20:38 [facility] LYMPH% - [facility] 15(L) 20 - 40 % 05/23/2017 20:38 [facility] MEAN CORPUSCULAR HGB - [facility] 29.4 26 - 34 pg 05/23/2017 20:38 [facility] MEAN CORPUSCULAR HGB CONC - [facility] 32.8 31 - 36 g/dL 05/23/2017 20:38 [facility] MEAN CELL VOLUME - [facility] 89.5 77 - 100 fl 05/23/2017 20:38 [facility] MONO # - [facility] 0.79 0.3 - 0.9 10e3/uL 05/23/2017 20:38 [facility] MONO% - [facility] 7 0 - 12 % 05/23/2017 20:38 [facility] PLATELET COUNT 271 150 - 400 10e3/ul 05/23/2017 20:38 [facility] RED BLOOD COUNT - [facility] 4.59 3.8 - 5.2 10e6/ul 05/23/2017 20:38 [facility] RED CELL DISTRI WIDTH - [facility] 12.3 11.8 - 15.6 % 05/23/2017 20:38 [facility] WHITE BLOOD COUNT - [facility] 10.9(H) 3.5 - 10.5 10e3/ul 05/23/2017 20:38 [facility] 05/23/2017 20:2 0 EDT 05/23/2017 20:28 EDT Narrative [facility] - 05/23/2017 20:38 EDT Does PT Have a Latex Allergy? NO us La Alejo TUBE TEST TECHNICIAN ENP HEMATOLOGY & PF4 ORDERABLE S Final Result [facility] documented in this encounter Visit Diagnoses Not on filedocumented in this encounter Care Teams Sports Recruiter Relationship Specialty Start Date End Date Unknown, Provider, PCP - General 06/05/16 04/29/20 documented as of this encounter
--- OUTSIDE RECORDS SUMMARY | 2024-07-18 12:54 | XMS_ITS | Encounter Summary ---
Author Organization [facility] Address [facility] [place] [address] Care Team Providers Care Data Review Specialist Name Role Phone Crys Alcantara MD Primary Care Provider Encounter Details Date Type Department Care Team (Late st Contact Info) Description 06/05/2024 Interpretation Only [facility] in [address] [address] Margarita Mckeon PA [address] [place], [place] [id number] Social History Tobacco Use Types Packs/Day Years [...] 1:00 PM EST Office Visit Dermatology at [facility] [address] [place] [address] Letha Elliott MD [facility] [address] [address] documented as of this encounter Procedures Procedure Name Priority Date/Time Associated Diagnosis Comments XR WRIST 3 VIEWS RIGHT Routine 06/05/2024 9:24 AM EDT documented in this encounter Results * XR Wrist 3 Views Right (06/05/2024 9:24 AM EDT) PT CLASS O DH RAD ADMITDTTM [id number] DH RAD PT RAD INFO [id number]^LAMELL ^MARGARITA^L RAD EXAM DESC [id number]^XR WRIST 3V W NAVICULAR RT^RIS RAD WORKSTATION ID [id number] RAD Anatomical Region Laterality Modality Right Radiographic Bev ging Impressions 06/05/2024 10:12 AM EDT 1. ??Mildly impacted and volarly angulated distal radius fracture 2. ??Mildly displaced ulnar side fracture. Thank you for letting us participate in the care of this patient. ??If you are a health care provider and have any questions regarding this report, please contact the number below. ??For patients who have questions please contact the health patient care specialist that requested your imaging first. ? Electronically signed by: Choco Doss MD, [facility] ([phone]), at 06/05/2024 10:12 AM Narrative 06/05/2024 10:12 AM EDT EXAMINATION: XR WRIST 3V W NAVICULAR RT CLINICAL HISTORY: REASON: WRIST PAIN, RIGHT ADD'L INFO: NO ENTRY TECHNIQUE: 4 views RIGHT wrist COMPARISON: None FINDINGS: Mildly impacted fracture of the distal radius metaphysis with a mild volar tilt (reverse Colles) There is no loss of radial height. ??No obvious intra-articular extension There is mildly displaced fracture ulnar styloid. Diffuse wrist soft tissue swelling. ??Other bones are intact. 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 Procedure Note Choco Doss MD - 06/05/2024 EXAMINATION: XR WRIST 3V W NAVICULAR RT CLINICAL HISTORY: REASON: WRIST PAIN, RIGHT ADD'L INFO: NO ENTRY TECHNIQUE: 4 views RIGHT wrist COMPARISON: None FINDINGS: Mildly impacted fracture of the distal radius metaphysis with a mild volartilt (reverse Colles) There is no loss of radial height. No obvious intra-articular extension There is mildly displaced fracture ulnar styloid. Diffuse wrist soft tissue swelling. 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 IMPRESSION 1. Mildly impacted and volarly angulated distal radius fracture 2. Mildly displaced ulnar side fracture. Thank you for letting us participate in the care of this patient. If youare a health care provider and have any questions regarding this report,please contact the number below. For patients who have questions please contactthe health patient care specialist that requested your imaging first. Margarita ELLIS IMG DX ORDERABLES documented in this encounter Visit Diagnoses Not on filedocumented in this encounter Care Teams Data Review Specialist Relationship Specialty Start Date End Date Crys Alcantara MD [address] [address] PCP - General 07/19/10 06/16/24 documented as of this encounter
--- OUTSIDE RECORDS SUMMARY | 2024-07-18 12:54 | XMS_ITS | Encounter Summary ---
Author Organization [facility] Address [facility] [place] [address] Care Team Providers Care Compressor House Operator Name Role Phone Crys Alcantara MD Primary Care Provider [phone] Encounter Details Date Type Department Care Team (Late st Contact Info) Description 03/26/2024 Interpretation Only [facility] in [facility] [address] [place] [address] Jamila Clark, RHONDA [address] [place] [address] Social History Tobacco Use Types Packs/Day Years [...] 1:00 PM EST Office Visit Dermatology at [facility] [address] [place] [address] Letha Elliott MD [facility] [address] [place] [address] documented as of this encounter Procedures Procedure Name Priority Date/Time Associated Diagnosis Comments XR KNEE 4 OR MORE VIEWS BILAT Routine 03/26/2024 8:25 AM EDT documented in this encounter Results * XR Knee 4 or more views Bilat (03/26/2024 8:25 AM EDT) PT CLASS O DH RAD ADMITDTTM [id number] RAD PT RAD INFO [id number]^NING RG^JAMILA^D RAD EXAM DESC [id number]^XR KNEE BILAT 4V^RIS [facility] WORKSTATION ID [id number] [facility] Anatomical Region Laterality Modality Knee Bilateral Radiographic Bev ging Impressions 03/26/2024 8:48 AM EDT FINDINGS/impression: There is mild loss of both medial and lateral compartments occurring bilaterally. There is a mild loss of anterior compartment joint space at the right, and not on the left. There are small medial joint line osteophyte formations at the left side. No effusion seen at either side. Thank you for letting us participate in the care of this patient. ??If you are a health care provider and have any questions regarding this report, please contact the number below. ??For patients who have questions please contact the health healthcare marketer that requested your imaging first. ? Electronically signed by: Manjeet Roberts MD, [facility] ([phone]), at 03/26/2024 8:48 AM Narrative 03/26/2024 8:48 AM EDT EXAMINATION: XR KNEE BILAT 4V CLINICAL HISTORY: REASON: PAIN IN RIGHT KNEE ADD'L INFO: 4V AP, LATERAL, NOTCH VIEW, SUNRISE TECHNIQUE: 5 views BILATERAL knee COMPARISON: 06/12/2023 Procedure Note Manjeet Roberts MD - 03/26/2024 EXAMINATION: XR KNEE BILAT 4V CLINICAL HISTORY: REASON: PAIN IN RIGHT KNEE ADD'L INFO: 4V AP, LATERAL,NOTCH VIEW, SUNRISE TECHNIQUE: 5 views BILATERAL knee COMPARISON: 06/12/2023 IMPRESSION FINDINGS/impression: There is mild loss of both medial and lateral compartments occurring bilaterally. There is a mild loss of anterior compartment joint space atthe right, and not on the left. There are small medial joint line osteophyte formations at the leftside. No effusion seen at either side. Thank you for letting us participate in the care of this patient. If youare a health care provider and have any questions regarding this report,please contact the number below. For patients who have questions please contactthe health healthcare marketer that requested your imaging first. Electronically signed by: Manjeet Roberts MD, [facility]([phone]), at 03/26/2024 8:48 AM aJmila ELLIS IMG DX ORDERABLES documented in this encounter Visit Diagnoses Not on filedocumented in this encounter Care Teams Compressor House Operator Relationship Specialty Start Date End Date Crys Alcantara MD [address] [address] PCP - General 07/19/10 06/16/24 documented as of this encounter
--- OUTSIDE RECORDS SUMMARY | 2024-07-18 12:54 | XMS_ITS | Encounter Summary ---
Author Organization [facility] Address [address] [place] [address] Care Team Providers Care Mold Finisher Name Role Phone Unknown, Provider Primary Care Provider Unava ilable Encounter Details Date Type Department Care Team (Late st Contact Info) Description 10/16/2013 Historical Results Only [facility] [place] [address] Kimberley Jimenez MD [address] [facility], [facility] [address] [place] [address] Social History Tobacco Use Types [...] Contact Info) Description 07/21/2024 18:10 EST Appointment [facility] Mammography [address] [place] [address] documented as of this encounter Procedures Procedure Name Priority Date/Time Associated Diagnosis Comments PAP TEST Routine 10/16/2013 9:37 EST documented in this encounter Results * PAP TEST (10/16/2013 9:37 EST) 10/16/2013 9:37 EST 10/16/2013 14:24 EST Narrative [facility] - 10/21/2013 17:31 EST ----- ------- Name: CHUY RANDLE ? : 62 ?Age/Sex: 58/F ?Unit#: [id number] ? Loc: MVM ? Status: REG POV ?? Reg Date: 10/16/13 ? Pt.Phone Number: ? ----- ------- Specimen: [id number] ? STATUS: SOUT ?Spec Date:10/16/13 ? Physician Copies: ?Kimberley Jimenez MD ?? Tissues: ? VAG/CERV PAP ? CPT: 11082 ?? Units: ??1 ----- ------- ? CYTOLOGY DIAGNOSIS SPECIMEN ADEQUACY: ??Satisfactory for evaluation. Assessment of transformation zone not applicable (e.g. ??atrophy, vaginal sample, hysterectomy). GENERAL CATEGORIZATION: ?Negative for Intraepithelial Lesion or Malignancy DESCRIPTIVE DIAGNOSIS: ? Negative for Intraepithelial Lesion or Malignancy. ----- ------- ?HPV DNA RESULTS ?? 10/16/13 0937 HPV DNA RESULT ??NEG ? Negative for HPV types 16, 18, 31, 33, 35, 39, 45, 51, 52, ? 56, 58, 59, 66, 68. ? Method: Cervista HPV HR (High Risk) DNA test. ----- ------- ORDER QUERIES: LMP: ??4 WEEK'- 4 WKS AGO ? N Post ? N ??PREVIOUS ATYPICAL: N BCP/HRT? N Rad Rx? N IUD? N ??PAP PLUS HPV? Y ??REFLEX TO HR-HPV IF ASCUS Y REFLEX TO HPV 16/18 IF HPV POS/PAP NEG Y HPV REGARDLESS? Y ??RFLX HPV IF LSIL ?? Signed [facility] CT(ASCP) 10/21/13 By the signature above, the attending physician certifies that he/she has personally conducted a gross and/or microscopic examination of the described specimens and rendered or confirmed the above diagnosis. Test Performed by [facility], [address] [place] [address] Athletic Shoe Designer: Anita Osullivan MD PHD ----- ------- us Kimberley Jimenez MD PATHOLOGY ORDERABLES Final Resul t [facility] documented in this encounter Visit Diagnoses Not on filedocumented in this encounter Care Teams Mold Finisher Relationship Specialty Start Date End Date Unknown, Provider, PCP - General 06/05/16 04/29/20 documented as of this encounter
--- OUTSIDE RECORDS SUMMARY | 2024-07-18 12:54 | XMS_ITS | Clinical Summary ---
Author Organization [facility] Address [facility] [place] [address] Care Team Providers Care Trenching Machine Operator Name Role Phone Dani Perez MD Primary Care Provider Encounters Date Type Department Care Team Description 07/14/2024 Interpretation Only [facility] in [address] [address] Margarita Mckeon PA 06/17/2024 Transcribe Orders eDH Incoming Referrals [phone] Dani Perez MD Skin lesion 06/05/2024 Interpretation Only [facility] in [address] [phone] Margarita Mckeon PA from Last 3 Months Social History Tobacco Use Types Packs/Day Years Used Date Smoking Tobacco: Never Assessed Sex and Gender Information Value Date Recorded Sex Assigned at Not on file Gender Identity Not on file Sexual Orientation Not on file Plan of Treatment Upcoming Encounters Date Type Department Care Team (Late st Contact Info) Description 09/02/2024 1:00 PM EST Office Visit Dermatology at [facility] [address] [place] [address] Letha Elliott MD [facility] [address] [place] [address] Health Maintenance Due Date Last Done Comments CT Colonography 1961 Colonoscopy 1961 Colorectal Cancer Screening 1961 FIT DNA 1960 FIT 1961 Sigmoidoscopy (10 year) with FIT yearly 1961 Sigmoidoscopy 1960 HIV screen 12/24/1979 Hepatitis C Screening 12/24/1979 Tetanus/Diphtheria/Pertussis Vaccines (1 - Tdap) 12/23 HPV test 12/24/1991 PAP Smear 12/24/1991 Breast Cancer Share Decision Needed 2001 Breast Cancer screening 2001 Zoster vaccine (1 of 2) 12/24/2011 Advance Directive 2016 Covid-19 Vaccine ( - season) 2024 Influenza (Flu) vaccine (1 o f 1 - Influenza standard series) 04/27/2024 Procedures Procedure Name Priority Date/Time Associated Diagnosis Comments XR WRIST 3 VIEWS RIGHT Routine 07/14/2024 2:44 PM EST XR WRIST 3 VIEWS RIGHT Routine 06/05/2024 9:24 AM EDT from Last 3 Months Results * XR Wrist 3 Views Right (07/14/2024 2:44 PM EST) Only the most recent of2 resultswithin the time period is included. PT CLASS O RAD ADMITDTTM [id number] RAD PT RAD MD INFO [id number]^LAMELL ^MARGARITA^L RAD EXAM DESC [id number]^XR WRIST 3V RT^RIS RAD WORKSTATION ID [id number] RAD Anatomical Region Laterality Modality Right Radiographic Bev ging Impressions 07/15/2024 11:06 AM EST FINDINGS/impression: ??Stable alignment at the distal radial fracture. Increasing endosteal new bone, fracture lucency no longer apparent at the distal radius. The ulnar styloid the fracture lucency also less conspicuous today. Thank you for letting us participate in the care of this patient. ??If you are a health care provider and have any questions regarding this report, please contact the number below. ??For patients who have questions please contact the health care information associate that requested your imaging first. ? Electronically signed by: Manjeet Roberts MD, [facility] ([phone]), at 07/15/2024 11:06 AM Narrative 07/15/2024 11:06 AM EST EXAMINATION: XR WRIST 3V RT CLINICAL HISTORY: REASON: RIGHT WRIST PAIN ADD'L INFO: PA, LATERAL, AND OBLIQUE TECHNIQUE: ??3 views COMPARISON: 06/05/2024 Procedure Note Majneet Roberts MD - 07/15/2024 EXAMINATION: XR WRIST 3V RT CLINICAL HISTORY: REASON: RIGHT WRIST PAIN ADD'L INFO: PA, LATERAL, ANDOBLIQUE TECHNIQUE: 3 views COMPARISON: 06/05/2024 IMPRESSION FINDINGS/impression: Stable alignment at the distal radial fracture.Increasing endosteal new bone, fracture lucency no longer apparent at the distalradius. The ulnar styloid the fracture lucency also less conspicuous today. Thank you for letting us participate in the care of this patient. If youare a health care provider and have any questions regarding this report,please contact the number below. For patients who have questions please contactthe health care information associate that requested your imaging first. Margarita ELLIS IMG DX ORDERABLES from Last 3 Months Care Teams Trenching Machine Operator Relationship Specialty Start Date End Date Dani Perez MD [address] [place] [address] PCP - General Family Medicine 06/17/24
--- OUTSIDE RECORDS SUMMARY | 2024-07-18 12:54 | XMS_ITS ---
Author Organization Unknown Address [address] [place] [phone] Phone Care Team Providers Care Distributor Of Directories Name Role Phone NIRAV Li Attending Unavailable Results MM SCR MAMMO BI INCL CAD - C ompleted: 11/04/2021 14:17 LOINC: Digital mammograms were inte rpreted according to the usual protocol including computer analysis with CADx system including tomosynthesis. Comparison through 2017. The breasts are composed of scattered fibroglandular densities. No suspicious masses or suspicious microcalcifications are seen. There has been no significant change. IMPRESSION: Negative mammogram. Yearly screening mammography is recommended. BI-RADS Assessment: Category 1. Negative. BREAST DENSITY: b. There are scattered areas of fibroglandular density. TECHNOLOGIST: Priscilla Grande (Robert)(M) Dictated by: CEO KAREN HAMPTON MD Transcribed by: CLAYTON 11/04/2115:24 D Thursday, November 04, 2021 2:24:36 PM [id number] Electronically Reviewed and Signed By: KAREN HAMPTON MD 11/04/21 15:43 Copy for: NIRAV Li via fax Copy for: [facility] HEALTH INFORMATION MGMT Social History Type Status Start Date End Date Code Code Syst em Smoking History Never smoker (Never Smoked) 898929886 SNOMED CT Sex Female Hospital Discharge Instructions Should you have any questions prior to discharge, please contact a member of your healthcare team. If you have left the hospital and have any questions, please contact your primary care physician. Reason For Referral No Data Found Allergies and Adverse Reactions Allergy Substance Reaction Severity Start Date Concern Status Co de Code System SULFA (sulfonamide) Active PENICILLINS (CLASS) Active 78068 RxNo rm Plan of Treatment MM SCREEN BILAT 11/04/2021 Encounters Encounter Diagnosis Start Date Code Code Sys tem Screening mammography 11/04/2021 [id number] SNOMED -CT Personal Care Team Section Performer Name Performer Role Active Date Inactive Da te
--- OUTSIDE RECORDS SUMMARY | 2024-07-18 12:54 | XMS_ITS | Encounter Summary ---
Author Organization [facility] Address [address] [place] [address] Care Team Providers Care Radiation Oncology Nurse Name Role Phone Unknown, Provider Primary Care Provider Unava ilable Encounter Details Date Type Department Care Team (Late st Contact Info) Description 06/05/[address] [facility] Radiology Results [address] [place] [address] Kimberley Jimenez MD [address] [facility], [facility] [address] [place] [address] Social History Tobacco Use Types [...] Info) Description 07/21/2024 18:[address] [facility] Mammography [address] [place] [address] documented as of this encounter Procedures Procedure Name Priority Date/Time Associated Diagnosis Comments MA BREAST SCREENING TIMMY BILATERAL 06/05/2016 13:34 EDT XR KNEE 4 OR MORE VIEWS 06/05/2016 11:46 EDT documented in this encounter Results * MA BREAST SCREENING TIMMY BILATERAL (06/05/2016 13:34 EDT) Anatomical Region Laterality Modality Breast Bilateral Other 06/05/2016 13:3 4 EDT Narrative 06/06/2016 12:29 EDT ? EXAM: MAMMOGRAM/MAMMO BILATERAL SCREEN W ??EX. D/ (1334) ? CLINICAL INFORMATION: ? Z12.31 SCREENING JORGE LUIS ? TECHNIQUE: ??Full field digital whole breast 2D (C-view) and 3D CC and ? MLO views of both breasts were obtained. CAD technology was utilized. ? INDICATION: ??Screening ? FINDINGS: ??The fibroglandular patterns of the breasts are normal. ? There has been no change when compared to previous mammograms and ? there is no mammographic evidence of cancer. The breasts are of ? scattered density. ? FINAL ASSESSMENT: ??BILATERAL BREAST - Category 1 - Negative. Routine ?mammographic follow-up is recommended. ? These results will be communicated to your patient via a lay letter ? from Radiology. ??If any additional imaging is needed we will contact ? your patient directly. ? BBL:kad ?Reported By: Osmar Morris MD ? CC: ? Transcribed Date/Time: 06/06/2016 (1229) ? Academic Affairs Dean: GAVIOTA ? Printed Date/Time: 02/07/2019 (1230) ? PAGE 1 ? Signed Report ? Procedure Note Osmar Morris MD - 07/02/2019 EXAM: MAMMOGRAM/MAMMO BILATERAL SCREEN W EX. D/ (1334) CLINICAL INFORMATION: Z12.31 SCREENING JORGE LUIS TECHNIQUE: Full field digital whole breast 2D (C-view) and 3D CCand MLO views of both breasts were obtained. CAD technology wasutilized. INDICATION: Screening FINDINGS: The fibroglandular patterns of the breasts are normal. There has been no change when compared to previous mammograms and there is no mammographic evidence of cancer. The breasts are of scattered density. FINAL ASSESSMENT: BILATERAL BREAST - Category 1 - Negative.Routine mammographic follow-up is recommended. These results will be communicated to your patient via a lay letter from Radiology. If any additional imaging is needed we willcontact your patient directly. BBL:aayush Reported By: Osmar Morris MD CC: Transcribed Date/Time: 06/06/2016 (3161) Academic Affairs Dean: GAVIOTA Printed Date/Time: 02/07/2019 (2230) PAGE 1 Signed Report us Kimberley Jimenez MD IMG MAMMOGRAPHY ORDERABLES Final Result * XR KNEE 4 OR MORE VIEWS (06/05/2016 11:46 EDT) Anatomical Region Laterality Modality Lower Extremities Other 06/05/2016 11:4 6 EDT Narrative 06/05/2016 11:52 EDT ? EXAM: RADIOLOGY/KNEE COMPLETE RT 4+VIEW ?? EX. D/ (1125) ? CLINICAL INFORMATION: ? M25.561 (R) KNEE PAIN ? TRAUMA TO (R) KNEE, PAIN POSTERIOR ? WHILE AMBULATING ? KNEE COMPLETE RT 4+VIEW ??06/05/2016 11:25 AM ? CLINICAL HISTORY/COMMENTS: M25.561 (R) KNEE PAIN : TRAUMA TO (R) ? KNEE, PAIN POSTERIOR . (R) KNEE TRUAMA, PAIN ? COMPARISON: None. ? FINDINGS: 4 views of the right knee were obtained. The bones are in ? appropriate alignment with no acute fractures or dislocations. Mild ? tricompartmental degenerative arthrosis is noted. The overlying soft ? tissues are unremarkable. Suspect trace suprapatellar effusion. ? IMPRESSION: ? 1. Suspect trace suprapatellar effusion. ? 2. No acute fracture or dislocation. ? REPORT SIGNED IN OTHER VENDOR SYSTEM 06/05/2016 ?Reported By: Lj Uribe MD ? CC: ? Transcribed Date/Time: 06/05/2016 (1152) ? Academic Affairs Dean: ? Printed Date/Time: 02/07/2019 (1230) ? PAGE 1 ? Signed Report ? Procedure Note Lj Uribe MD - 07/02/2019 EXAM: RADIOLOGY/KNEE COMPLETE RT 4+VIEW EX. D/ (1125) CLINICAL INFORMATION: M25.561 (R) KNEE PAIN TRAUMA TO (R) KNEE, PAIN POSTERIOR WHILE AMBULATING KNEE COMPLETE RT 4+VIEW 06/05/2016 11:25 AM CLINICAL HISTORY/COMMENTS: M25.561 (R) KNEE PAIN : TRAUMA TO (R) KNEE, PAIN POSTERIOR . (R) KNEE TRUAMA, PAIN COMPARISON: None. FINDINGS: 4 views of the right knee were obtained. The bones are in appropriate alignment with no acute fractures or dislocations. Mild tricompartmental degenerative arthrosis is noted. The overlyingsoft tissues are unremarkable. Suspect trace suprapatellar effusion. IMPRESSION: 1. Suspect trace suprapatellar effusion. 2. No acute fracture or dislocation. REPORT SIGNED IN OTHER VENDOR SYSTEM 06/05/2016 Reported By: Lj Uribe MD CC: Transcribed Date/Time: 06/05/2016 (3756) Academic Affairs Dean: Printed Date/Time: 02/07/2019 (2888) PAGE 1 Signed Report Kimberley Jimenez MD IMG DIAGNOSTIC IMAGING ORDERABLE S Final Result documented in this encounter Visit Diagnoses Not on filedocumented in this encounter Care Teams Radiation Oncology Nurse Relationship Specialty Start Date End Date Unknown, Provider, PCP - General 06/05/16 04/29/20 documented as of this encounter
--- OUTSIDE RECORDS SUMMARY | 2024-07-18 12:54 | XMS_ITS ---
Author Organization Unknown Address [address] [place] [phone] Phone Care Team Providers Care Automobile Sales Consultant Name Role Phone MANISHA Rene Attending Unavailable NIRAV Li Primary Unavailable Results XR KNEE BILAT 4V* - Complete d: 06/12/2023 15:07 LOINC: [facility] [place], [place] [address] PACS RESIDENTIAL REMODELING SUBCONTRACTOR REPORT Patient Name: KOMAL FOX MRN: Sex: : Age: [id number] F 1960 62 Account: Accession: Admit: StayType: [id number] 06/12/2023 CLINIC Ordered: Order ID: Submitted: Ordering Provider: 06/12/2023 14:44 [id number] KELIZABETH RAM Completed: Technologist: Resulted: 06/12/2023 15:07 KDONOVAN 06/12/2023 15:13 Study Description: XR KNEE BILAT 4V Study Reason: Pain Technique: 2D digital imaging was performed. 5 images were obtained. COMPARISON: Comparison is made with prior examinations. FINDINGS: In the right knee there is mild joint space narrowing in the medial femoral-tibial joint. The joint spaces are otherwise well-maintained. No significant joint effusion is seen. The bones are normally mineralized and intact. In the left knee, there are degenerative changes present characterized by joint space narrowing and osteophytes. The findings are most marked in the medial femoral-tibial joint. There is a small joint effusion. IMPRESSION: Osteoarthritis of the knees, left greater than right. Report Digitally Signed by Enresto Reis on 06/12/2023 03:13 PM EDT Social History Type Status Start Date End Date Code Code Syst em Smoking History Never smoker (Never Smoked) [id number] SNOMED CT Sex Female Hospital Discharge Instructions [...] System SULFA (sulfonamide) Active PENICILLINS (CLASS) Active 97568 RxNo rm Plan of Treatment MM SCREEN BILAT 11/04/2021 Encounters Encounter Diagnosis Start Date Code Code Sys tem Idiopathic osteoarthritis 06/12/2023 [id number] SN OMED-CT Personal Care Team Section Performer Name Performer Role Active Date Inactive Da te
--- OUTSIDE RECORDS SUMMARY | 2024-07-18 12:54 | XMS_ITS | Encounter Summary ---
Author Organization [facility] Address [facility] [place] [address] Care Team Providers Care Custodial Worker Name Role Phone Dani Perez MD Primary Care Provider Encounter Details Date Type Department Care Team (Late st Contact Info) Description 07/14/2024 Interpretation Only [facility] [place] [facility] in [address] [address] Margarita Mckeon PA [address] [place], [place] [id number] Social History Tobacco Use Types Packs/Day Years [...] 1:00 PM EST Office Visit Dermatology at [facility] [address] [place] [address] Letha Elliott MD [facility] [address] [address] documented as of this encounter Procedures Procedure Name Priority Date/Time Associated Diagnosis Comments XR WRIST 3 VIEWS RIGHT Routine 07/14/2024 2:44 PM EST documented in this encounter Results * XR Wrist 3 Views Right (07/14/2024 2:44 PM EST) PT CLASS O DH RAD ADMITDTTM [id number] DH RAD PT DH RAD INFO [id number]^LAMELL ^MARGARITA^L RAD EXAM DESC [id number]^XR WRIST 3V RT^RIS [facility] WORKSTATION ID [id number] [facility] Anatomical Region Laterality Modality Right Radiographic Bev [...] who have questions please contact the health attending ambulatory care that requested your imaging first. ? Electronically signed by: Manjeet Roberts MD, [facility] ([phone]), at 07/15/2024 11:06 AM Narrative 07/15/2024 11:06 AM EST EXAMINATION: XR WRIST 3V RT CLINICAL HISTORY: REASON: RIGHT WRIST PAIN ADD'L INFO: PA, LATERAL, AND OBLIQUE TECHNIQUE: ??3 views COMPARISON: 06/05/2024 Procedure Note Manjeet Roebrts MD - 07/15/2024 EXAMINATION: XR WRIST 3V [...] patients who have questions please contactthe health attending ambulatory care that requested your imaging first. Margarita ELLIS IMG DX ORDERABLES documented in this encounter Visit Diagnoses Not on filedocumented in this encounter Care Teams Custodial Worker Relationship Specialty Start Date End Date Dani Perez MD [address] [place] [address] PCP - General Family Medicine 06/17/24 documented as of this encounter
--- OUTSIDE RECORDS SUMMARY | 2024-07-18 12:54 | XMS_ITS | Encounter Summary ---
Author Organization [facility] Address [address] [place] [address] Care Team Providers Care Pan Puller Name Role Phone Unknown, Provider MD Primary Care Provider Unava ilable Encounter Details Date Type Department Care Team (Latest Contact Info) Description 06/05/2016 13:41 EDT - 06/05/2016 23:59 EDT Hospital Encounter [facility] [place] [facility] [address] [place] [address] Unknown, ProviderMD Discharge Disposition: Home or Self [...] Code Departure Means Destination Home or Self Custodial documented in this encounter Plan of Treatment Upcoming Encounters Date Type Department Care Team (Late st Contact Info) Description 07/21/2024 18:10 EST Appointment [facility] Mammography [address] [place] [address] documented as of this encounter Visit Diagnoses Not on filedocumented in this encounter Care Teams Pan Puller Relationship Specialty Start Date End Date Unknown, Provider, PCP - General 06/05/16 04/29/20 documented as of this encounter
--- OUTSIDE RECORDS SUMMARY | 2024-07-18 12:55 | XMS_ITS ---
Author Organization Unknown Address [address] [place] [address] [phone] Phone Care Team Providers Care Integrated Circuits Inspector Name Role Phone MANISHA Rene Attending Unavailable NIRAV Li Primary Unavailable Social History Type Status Start Date End Date Code Code Syst em Smoking History Never smoker (Never Smoked) [id number] SNOMED CT Sex Female Hospital Discharge Instructions [...] System SULFA (sulfonamide) Active PENICILLINS (CLASS) Active 93562 RxNo rm Plan of Treatment MM SCREEN BILAT 11/04/2021 Encounters Encounter Diagnosis Start Date Code Code Sys tem Idiopathic osteoarthritis 05/28/2024 [id number] SN OMED-CT Personal Care Team Section Performer Name Performer Role Active Date Inactive Da te
--- OUTSIDE RECORDS SUMMARY | 2024-07-18 12:55 | XMS_ITS ---
Author Organization Unknown Address [address] [place] [address] [phone] Phone Care Team Providers Care Facility Environmental Technician Name Role Phone MANISHA Rene Attending Unavailable NIRAV Li Primary Unavailable Social History Type Status Start Date End Date Code Code Syst em Smoking History Never smoker (Never Smoked) [id number] SNOMED CT Sex Female Hospital Discharge Instructions [...] System SULFA (sulfonamide) Active PENICILLINS (CLASS) Active 02907 RxNo rm Plan of Treatment MM SCREEN BILAT 11/04/2021 Encounters Encounter Diagnosis Start Date Code Code Sys tem Idiopathic osteoarthritis 06/12/2024 [id number] SN OMED-CT Personal Care Team Section Performer Name Performer Role Active Date Inactive Da te
--- OUTSIDE RECORDS SUMMARY | 2024-07-18 12:55 | XMS_ITS ---
Author Organization Unknown Address [address] [place] [address] [phone] Phone Care Team Providers Care Supervisor [place] Name Role Phone MANISHA Rene Attending Unavailable NIRAV Li Primary Unavailable Results XR KNEE BILAT 4V* - Complete d: 03/26/2024 08:25 LOINC: [facility] [place], [place] [address] RADIOLOGY PACS RUG SAMPLE BEVELER REPORT Patient Name: KOMAL FOX MRN: Sex: : Age: [id number] F 1960 63 Account: Accession: Admit: StayType: [id number] 03/26/2024 O Ordered: Order ID: Submitted: Ordering Provider: 03/26/2024 08:16 [id number] ELIZABETH DYER Completed: Technologist: Resulted: 03/26/2024 08:19 03/26/2024 08:48 EXAMINATION: XR KNEE BILAT 4V CLINICAL HISTORY: REASON: PAIN IN RIGHT KNEE ADD'L INFO: 4V AP, LATERAL, NOTCH VIEW, SUNRISE TECHNIQUE: 5 views BILATERAL knee COMPARISON: 06/12/2023 FINDINGS/impression: There is mild loss of both medial and lateral compartments occurring bilaterally. There is a mild loss of anterior compartment joint space at the right, and not on the left. There are small medial joint line osteophyte formations at the left side. No effusion seen at either side. Thank you for letting us participate in the care of this patient. If you are a health care provider and have any questions regarding this report, please contact the number below. For patients who have questions please contact the health care management assistant that requested your imaging first. Social History Type Status Start Date End Date Code Code Syst em Smoking History Never smoker (Never Smoked) [id number] SNOMED CT Sex Female Hospital Discharge Instructions [...] System SULFA (sulfonamide) Active PENICILLINS (CLASS) Active 42514 RxNo rm Plan of Treatment MM SCREEN BILAT 11/04/2021 Encounters Encounter Diagnosis Start Date Code Code Sys tem Idiopathic osteoarthritis 03/26/2024 [id number] SN OMED-CT Personal Care Team Section Performer Name Performer Role Active Date Inactive Da te
--- OUTSIDE RECORDS SUMMARY | 2024-07-18 12:55 | XMS_ITS ---
Author Organization Unknown Address [address] [place] [address] [phone] Phone Care Team Providers Care Promotions Coordinator Name Role Phone MANISHA Rene Attending Unavailable NIRAV Li Primary Unavailable Social History Type Status Start Date End Date Code Code Syst em Smoking History Never smoker (Never Smoked) 076633541 SNOMED CT Sex Female Hospital Discharge Instructions [...] System SULFA (sulfonamide) Active PENICILLINS (CLASS) Active 11413 RxNo rm Plan of Treatment MM SCREEN BILAT 11/04/2021 Personal Care Team Section Performer Name Performer Role Active Date Inactive Da te
--- OUTSIDE RECORDS SUMMARY | 2024-07-18 12:56 | XMS_ITS ---
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 Other bones are intact. 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 IMPRESSION: 1. Mildly impacted and volarly angulated distal radius fracture 2. Mildly displaced ulnar side fracture. Thank you for letting us participate in the care of this patient. If you are a health care provider and have any questions regarding this report, please contact the number below. For patients who have questions please contact the health urgent care physician that requested your imaging first. Social History Type Status Start Date End Date Code Code Syst em Smoking History Never smoker (Never Smoked) [id number] SNOMED CT Sex Female Hospital Discharge Instructions [...] System SULFA (sulfonamide) Active PENICILLINS (CLASS) Active 97635 RxNo rm Plan of Treatment MM SCREEN BILAT 11/04/2021 Encounters Encounter Diagnosis Start Date Code Code Sys tem 06/05/2024 [id number] SNOMED-CT Personal Care Team Section Performer Name Performer Role Active Date Inactive Da te
== END 2024-07-18 12:52 | disposition home or self-care (01) ==
LOC: NCHCN 12:51
PROVIDERS: Visit Provider Family Medicine
DX: Z11.51 Encounter for screening for human papillomavirus (HPV) (principal); Z01.419 Encounter for gynecological examination (general) (routine) without abnormal findings
CPT/HCPCS: 88142; 87624

== ENCOUNTER 2024-08-05 09:49 | Outpatient (REF) | payer BC, SELFPAY ==
[2024-08-05 15:26] LABS: Anion Gap 9.2 mmol/L (3-11); BUN 23 mg/dL (7-18); CO2 26.8 mmol/L (21.0-32.0); CREATININE 0.7 mg/dL (0.55-1.02); Calcium 8.9 mg/dL (8.5-10.1); Chloride 107 mmol/L (98-107); Estimated GFR 97.72 (mL/min/1.73m2); Glucose 94 mg/dL (74-106); Potassium 3.8 mmol/L (3.5-5.1); Sodium 143 mmol/L (136-145); Vitamin D 25 Total 25.4 ng/mL (30-100)
== END 2024-08-05 09:50 | disposition home or self-care (01) ==
LOC: NCHCN 09:49
PROVIDERS: PCP Family Medicine; Visit Provider Family Medicine
DX: M81.0 Age-related osteoporosis without current pathological fracture (principal)
CPT/HCPCS: 80048; 82306